=== PATIENT | female | born 1960 | race Caucasian/White ===

== ENCOUNTER → 2017-03-30 | Outpatient (CLI) | payer OTHER ==
[~2017-03-30] MED LIST: ALBU0.5N2 NEB; AMT50 PO; CLON0.5T3 PO; GABA-113 PO; Nebulizer; OXYC20TA50 PO
--- NOTE | 2017-03-30 12:10 | DIAGNOSTIC IMAGING REPORT ---
LUMBAR SPINE 5 VIEWS HISTORY: Pain NA COMPARISON: 02/09/2014 FINDINGS: There is no fracture. No subluxation. Degenerative intervertebral disc change L5-S1 with a small vacuum discs. Mild degenerative change posterior elements. IMPRESSION: Degenerative intervertebral disc changes L5-S1. Minimal degenerative change posterior elements. No acute process. Electronically signed by: Castillo Loyd M.D. 03/30/2017 12:08 PM Dictated Date/Time: 03/30/2017 12:06 PM
--- NOTE | 2017-03-30 12:12 | DIAGNOSTIC IMAGING REPORT ---
SACRUM ONLY CLINICAL HISTORY: LOWER BACK PAIN COMPARISON STUDY: None FINDINGS: Findings of anterior angulation of the coccyx consistent with coccydynia. Moderate degenerative disc change L5-S1. Otherwise negative study. Sacroiliac joints are unremarkable. IMPRESSION: Coccydynia. Mild degenerative disc change L5-S1. Otherwise negative study Electronically signed by: Castillo Loyd M.D. 03/30/2017 12:10 PM Dictated Date/Time: 03/30/2017 12:09 PM
== END | disposition home or self-care (01) ==
LOC: C.RAD 11:07
PROVIDERS: ATTEND Nurse Practitioner Family
DX: M51.26 Other intervertebral disc displacement, lumbar region (principal); M96.1 Postlaminectomy syndrome, not elsewhere classified; M51.36 Other intervertebral disc degeneration, lumbar region; M53.3 Sacrococcygeal disorders, not elsewhere classified

== ENCOUNTER → 2017-08-02 | Outpatient (CLI) | payer OTHER ==
[~2017-08-02] MED LIST changes: +GADAVIST IV PRN
--- NOTE | 2017-08-02 13:27 | DIAGNOSTIC IMAGING REPORT ---
MRI OF THE BRAIN AND IACS WITHOUT AND WITH IV CONTRAST CLINICAL HISTORY: H90.42 Left asymmetrical sensorineural hearing loss COMPARISON STUDY: No previous studies for comparison. TECHNIQUE: MRI of the brain was performed from the vertex to the skull base utilizing various T1 and T2 weighted sequences. Following the IV administration of 7.7 mL of Gadavist contrast, additional enhanced images were obtained. FINDINGS: Sagittal T1, axial diffusion, proton density and T2 weighted axial, coronal FLAIR, and pre and post axial T1-weighted images were acquired. These were supplemented with post gadolinium coronal T1 weighted images. No intra or extra-axial mass lesions are visualized. Axial diffusion-weighted images reveal no evidence of acute or subacute infarction. There is no evidence of ventricular dilatation. Proton density T2-weighted and FLAIR images reveal scattered foci of increased T2 signal within the white matter, likely on a small vessel basis. There are no abnormal flow voids. There is no evidence of pathologic enhancement. The 7th and 8th nerve complexes appear normal bilaterally. No cerebellopontine angle masses are visualized. IMPRESSION: 1. No acute intracranial findings 2. No evidence of acute or subacute infarction 3. No evidence of intracranial mass. The 7th and 8th nerve complexes appear normal bilaterally. No cerebellopontine angle masses are delineated Electronically signed by: Kenji Henry M.D. 08/02/2017 1:26 PM Dictated Date/Time: 08/02/2017 1:24 PM
== END | disposition home or self-care (01) ==
LOC: C.MRI 11:56
DX: H90.42 Sensorineural hearing loss, unilateral, left ear, with unrestricted hearing on the contralateral side (principal)

== ENCOUNTER → 2017-09-21 | Outpatient (CLI) | payer OTHER ==
[~2017-09-21] MED LIST changes: -GADAVIST IV PRN
== END | disposition home or self-care (01) ==
LOC: C.PAPS 09:48
PROVIDERS: ATTEND Obstetrics & Gynecology
DX: D07.2 Carcinoma in situ of vagina (principal)

== ENCOUNTER → 2017-11-28 | Outpatient (CLI) | payer OTHER | END | disposition home or self-care (01) | LOC: C.PATHSPEC 17:34 | PROVIDERS: ATTEND Obstetrics & Gynecology | DX: L98.9 Disorder of the skin and subcutaneous tissue, unspecified (principal) ==

== ENCOUNTER 2022-07-03 10:18 | Inpatient (IN) ==
[2022-07-03] MEDS ORDERED: SODIUM CHLORIDE 0.9% 1000ML 1,000 ML IV ONE (11:01)
--- NOTE | 2022-07-03 11:10 | Emergency Department Note ---
Impression & Plan Hypoxia, Bilateral pneumonia, Transaminitis, AMS (altered mental status) ED Provider Note NAME: ROSE GELLER AGE: 61 SEX: F : 1960 ARRIVES VIA: Walk-In INFORMANT: Patient ED PROVIDER(S): Kevon Freeman DO CHIEF COMPLAINT: shortness of breath HPI: Patient is a 61-year-old female who presents the ER for shortness of breath. This started the past 2 days. She admits to a cough which has significantly worsened today. Did receive methadone prior to arrival but has been confused since waking up this morning per family member at bedside. Denies any belly pain, nausea, vomiting, or diarrhea. No dysuria, urgency, or frequency. She denies any chest pain family member notes that she was having some pain earlier today. ROS: See above HPI for pertinent positives & negatives. A total of 10 systems reviewed and were otherwise negative. PAST MEDICAL HISTORY:See Below PAST SURGICAL HISTORY:See Below FAMILY HISTORY:See Below SOCIAL HISTORY:See Below HOME MEDICATIONS:See Below ALLERGIES:See Below VITALS:See Below PHYSICAL EXAMINATION: GENERAL: Sitting up in bed, alert, appearing, disheveled, on nasal cannula, diaphoretic EYE EXAM: normal conjunctiva. OROPHARYNX: no exudate, no erythema, lips, buccal mucosa, and tongue normal and mucous membranes are moist NECK: supple, no nuchal rigidity, no adenopathy, non-tender LUNGS: Clear to auscultation. Normal chest wall mechanics HEART: no murmurs, S1 normal and S2 normal ABDOMEN: abdomen soft, non-tender, normo-active bowel sounds, no masses, no rebound or guarding. UPPER EXTREMITIES: upper extremities are grossly normal. LOWER EXTREMITIES: No pitting edema. NEURO EXAM: Oriented to person but not place or year, cranial nerves II-XII grossly intact, normal speech, no gross weakness of arms, no gross weakness of legs. MEDICAL DECISION MAKING: Patient is a 61-year-old female who presents the ER with above-stated complaint. Patient has been having cough congestion shortness of breath for the past 2 days. IV was established blood was obtained. Labs show no significant leukocytosis or anemia. D-dimer was elevated. VBG with a pH of 7.34. BMP was unremarkable. LFTs elevated in the 150s. Troponin elevated at 30. Pro-Nabeel was normal. CT head as well as angio of the chest was unremarkable. Given IV fluids as well as IV antibiotics which include Rocephin and azithromycin. Remained on nasal cannula and was admitted to hospital for further work-up. Triage Nursing notes reviewed. Limited review of prior medical records performed Vital Signs: reviewed and remarkable for hypoxic, tachycardic and hypertensive Differential diagnosis: Differential diagnoses includes but is not limited to pneumonia, bronchitis, COPD/Asthma exacerbation, pneumothorax, pulmonary embolism, congestive heart failure, acute coronary syndrome ER treatment provided: See below Diagnostics interpreted by me: ECG: Sinus tachycardia rate of 118 Left axis Right bundle branch block T wave inversions in the septal leads and high lateral leads QTC 476 Cardiac Monitoring: An order was placed for continuous cardiac monitoring. The monitor shows a rate of 101 with sinus rhythm. Laboratory studies: As stated above and show below. Imaging studies: Chest x-ray with bilateral pneumonia. 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 during vocal cord polypectomy Surgical History History of colonoscopy History of esophagogastroduodenoscopy (EGD) History of laparoscopy History of loop electrical excision procedure (LEEP) History of lumbar surgery History of prior ablation treatment (2013) vaginal lesions History of tubal ligation History of vocal cord polypectomy Family History Father Diabetes Myocardial infarction Lung cancer Hypertension Mother Diabetes Cardiac disorder Hypertension Grandfather (Maternal) Diabetes Grandmother (Maternal) Diabetes Unknown Heart disease Sister Myocardial infarction Grandfather (Paternal) Diabetes Grandmother (Paternal) Diabetes Brother Retinoblastoma Other No family history of adverse response to anesthesia Denies family history of Ovarian cancer Prostate cancer Osteoporosis Breast cancer Bleeding disorder Colorectal cancer Social History Smoking Status: Current some day smoker Tobacco Type: Cigarettes Age Started Using Tobacco: 17; Cigarettes Per Day: 12-14; Second Hand Exposure: Yes; Hx Alcohol Use: Yes Hx Substance Use: No Preferred Language: [place] Communication Ability: Effective Visual Impairment: No Limitations Hearing Ability: Normal Beliefs That Will Affect Care: None marital status: Current Living Situation: Alone current occupational status: unemployed and disabled Feels Safe at Home: Yes Childhood Exposure to Second-Hand Smoke: Yes caffeine: Yes Dental Care, Regularly: Yes Physical Activity Frequency: 5-6 Times per Week Seatbelt Use: always Sunscreen Use: Yes Assistive Devices: Denture - Upper and Denture - Lower Allergies Allergies Allergy/AdvReac Type Severity Reaction Status Date / Time varenicline Allergy Severe DIFFICULTY Verified 05/03/22 14:41 BREATHING bupropion AdvReac Intermediate INCREASED Verified 05/03/22 14:41 PANIC DISORDER fluoxetine AdvReac Intermediate INCREASES Verified 05/03/22 14:41 PANIC DISORDER venlafaxine AdvReac Intermediate INCREASES Verified 05/03/22 14:41 PANIC DISORDER Home Meds Home Medications Medication Instructions Recorded Confirmed methadone 10 mg/mL oral concentrate 131 mg PO QAM 08/19/19 05/03/22 aspirin 81 mg tablet,delayed 81 mg PO QAM 07/07/20 05/03/22 release (Adult Low Dose Aspirin) naloxone 4 mg/actuation nasal 1 spray intranasal DIRECTED PRN 04/16/22 spray (Narcan) NEEDED Previous Rx's Medication Instructions Recorded fluticasone furoate 100 1 inh inhalation DAILY #60 ea 06/15/21 mcg-vilanterol 25 mcg/dose inhalation powder (Breo Ellipta) metformin 500 mg tablet 500 mg PO BID #180 tabs 09/22/21 albuterol sulfate 90 mcg/actuation 2 puff inhalation QID PRN 11/07/21 aerosol inhaler shortness of breath or wheezing #6.7 grams ipratropium 0.5 mg-albuterol 3 mg 3 ml inhalation QID PRN wheezing 11/07/21 (2.5 mg base)/3 mL nebulization #90 mL soln gabapentin 800 mg tablet 800 mg PO TID #90 tabs 03/24/22 psyllium husk 3.4 gram/5.4 gram 1 tbsp PO BID PRN constipation 04/06/22 oral powder (Metamucil) #660 grams amitriptyline 150 mg tablet 150 mg PO HS #90 tabs 04/14/22 prednisone 20 mg tablet See Rx Instructions PO .COMPLEX 05/03/22 #30 tabs methocarbamol 750 mg tablet 750 mg PO QID PRN CHRONIC PAIN #60 05/16/22 tabs Results & Data (ED) Vital Signs Vital Signs - 24 hr 07/03/22 10:36 07/03/22 11:02 07/03/22 11:03 Temperature 37.7 C H Temperature Source Temporal Artery Scan Pulse Rate 116 H Pulse Rate [Apical] 119 H Pulse Rhythm [Apical] Regular Respiratory Rate 18 22 Respiratory Effort / Characteristics Short of Breath Short of Breath Blood Pressure 166/85 H Blood Pressure [Left Arm] 156/118 H Blood Pressure Mean 112 Blood Pressure Mean [Left Arm] 130 Pulse Oximetry 89 L 94 Oxygen Delivery Method Room Air Nasal Cannula Nasal Cannula Oxygen Flow Rate Sepsis Recent Fever Within 48 Hours Yes Sepsis New/Unexplained Change in Mental Status No Sepsis Action Taken by Nursing No Action Required 07/03/22 11:03 07/03/22 11:18 07/03/22 13:10 Temperature Temperature Source Pulse Rate Pulse Rate [Apical] 82 Pulse Rhythm [Apical] Regular Respiratory Rate 20 Respiratory Effort / Characteristics Blood Pressure Blood Pressure [Left Arm] Blood Pressure Mean Blood Pressure Mean [Left Arm] Pulse Oximetry 95 92 Oxygen Delivery Method Nasal Cannula Nasal Cannula Nasal Cannula Oxygen Flow Rate 3 3 3 Sepsis Recent Fever Within 48 Hours Sepsis New/Unexplained Change in Mental Status Sepsis Action Taken by Nursing Laboratory Data Result diagrams: 07/03/22 10:55 07/03/22 10:55 Lab Results 07/03/22 07/03/22 07/03/22 Range/Units 10:55 10:55 10:55 WBC 10.36 (4.8-10.8) K/ul RBC 5.11 (3.93-5.22) M/uL Hgb 15.3 (12.0-16.0) g/dl Hct 47.1 H (34.1-44.9) % MCV 92.2 (80.0-100.0) fL MCH 29.9 (25.0-34.0) pg MCHC 32.5 (32.0-36.0) g/dL RDW Std Deviation 46.9 H (36.4-46.3) fL RDW Coeff of Daniel 13.7 (11.5-14.5) % Plt Count 194 (130-400) K/uL MPV 10.2 (9.4-12.3) fL Immature Gran % (Auto) 0.5 % Neut % (Auto) 86.6 % Lymph % (Auto) 5.9 % [place] % (Auto) 6.1 % Eos % (Auto) 0.5 % Baso % (Auto) 0.4 % Neut # (Auto) 8.98 H (1.4-6.5) K/uL Lymph # (Auto) 0.61 L (1.2-3.4) K/uL [place] # (Auto) 0.63 (0.24-0.82) K/uL Eos # (Auto) 0.05 (0-0.50) K/uL Baso # (Auto) 0.04 (0-0.2) K/uL Immature Gran # (Auto) 0.05 H (0.00-0.02) K/uL D-Dimer 4000 H* (0-500) ug/L FEU VBG pH (7.36-7.41) VBG pCO2 (38-50) mmHg VBG pO2 mmHg VBG HCO3 mmol/L VBG O2 Saturation % VBG Base Excess mEq/L Sodium 135 L (136-145) mmol/L Potassium 3.7 (3.5-5.1) mmol/L Chloride 101 (98-107) mmol/L Carbon Dioxide 24 (21-32) mmol/L Anion Gap 10 (3-11) BUN 9 (6-23) mg/dl Creatinine 0.68 (0.6-1.2) mg/dl Est Cr Clr Drug Dosing Not Reportable Est GFR ( Amer) 111.0 ml/min Est GFR (Non-Af Amer) 95.7 ml/min BUN/Creatinine Ratio 13.2 (10-20) Glucose 146 H (70-99(Fasting)) mg/dl Calcium 9.2 (8.5-10.1) mg/dl Total Bilirubin 1.0 (0.2-1.0) mg/dl AST 151 H (13-39) U/L ALT 114 H (7-52) U/L Alkaline Phosphatase 105 H (34-104) U/L Troponin I High Sens 29.1 H (0-14) pg/ml Total Protein 7.1 (6.0-8.3) gm/dl Albumin 3.9 (3.4-5.0) gm/dl Globulin 3.2 (2.5-4.0) gm/dl Albumin/Globulin Ratio 1.2 (0.9-2) Lipase 22 (11-82) U/L Procalcitonin (0-0.5) ng/ml SARS-CoV-2, RNA, NAAT (NEGATIVE) 07/03/22 07/03/22 07/03/22 Range/Units 10:55 11:18 11:29 WBC (4.8-10.8) K/ul RBC (3.93-5.22) M/uL Hgb (12.0-16.0) g/dl Hct (34.1-44.9) % MCV (80.0-100.0) fL MCH (25.0-34.0) pg MCHC (32.0-36.0) g/dL RDW Std Deviation (36.4-46.3) fL RDW Coeff of Daniel (11.5-14.5) % Plt Count (130-400) K/uL MPV (9.4-12.3) fL Immature Gran % (Auto) % Neut % (Auto) % Lymph % (Auto) % [place] % (Auto) % Eos % (Auto) % Baso % (Auto) % Neut # (Auto) (1.4-6.5) K/uL Lymph # (Auto) (1.2-3.4) K/uL [place] # (Auto) (0.24-0.82) K/uL Eos # (Auto) (0-0.50) K/uL Baso # (Auto) (0-0.2) K/uL Immature Gran # (Auto) (0.00-0.02) K/uL D-Dimer (0-500) ug/L FEU VBG pH 7.34 L (7.36-7.41) VBG pCO2 45 (38-50) mmHg VBG pO2 59 mmHg VBG HCO3 24 mmol/L VBG O2 Saturation 92.5 % VBG Base Excess -1.7 mEq/L Sodium (136-145) mmol/L Potassium (3.5-5.1) mmol/L Chloride (98-107) mmol/L Carbon Dioxide (21-32) mmol/L Anion Gap (3-11) BUN (6-23) mg/dl Creatinine (0.6-1.2) mg/dl Est Cr Clr Drug Dosing Est GFR ( Amer) ml/min Est GFR (Non-Af Amer) ml/min BUN/Creatinine Ratio (10-20) Glucose (70-99(Fasting)) mg/dl Calcium (8.5-10.1) mg/dl Total Bilirubin (0.2-1.0) mg/dl AST (13-39) U/L ALT (7-52) U/L Alkaline Phosphatase (34-104) U/L Troponin I High Sens (0-14) pg/ml Total Protein (6.0-8.3) gm/dl Albumin (3.4-5.0) gm/dl Globulin (2.5-4.0) gm/dl Albumin/Globulin Ratio (0.9-2) Lipase (11-82) U/L Procalcitonin 0.48 (0-0.5) ng/ml SARS-CoV-2, RNA, NAAT NEGATIVE (NEGATIVE) Administered Medications Sodium Chloride (Nss 1000ml) 1,000 mls @ 999 mls/hr IV .Q1H1M ONE Last Infusion: 07/03/22 12:22 Dose: 0 mls/hr Documented By: Admin: 07/03/22 11:20 Dose: 999 mls/hr Documented By: BUSTER Sodium Chloride (Nss) 500 mls @ 80 mls/hr IV .Q6H15M MADDY Stop: 07/03/22 20:14 Last Admin: 07/03/22 14:52 Dose: 80 mls/hr Documented By: BUSTER Discontinued Medications Dexamethasone Sodium Phosphate (DexamethasonePf 10 Mg/Ml Vial) 10 mg IV NOW ONE Stop: 07/03/22 12:01 Last Admin: 07/03/22 12:22 Dose: 10 mg Documented By: BUSTER Ceftriaxone Sodium (Rocephin) 2,000 mg in 70 mls @ 140 mls/hr IV NOW STA Stop: 07/03/22 12:29 Last Infusion: 07/03/22 12:33 Dose: 0 mls/hr Documented By: Admin: 07/03/22 12:22 Dose: 140 mls/hr Documented By: KV Azithromycin 500 mg/ Dextrose 255 mls @ 125 mls/hr IV ONE ONE Stop: 07/03/22 14:02 Last Infusion: 07/03/22 14:52 Dose: 0 mls/hr Documented By: Admin: 07/03/22 12:22 Dose: 125 mls/hr Documented By: KV Ioversol (Optiray 300 500ml) 120 ml IV ONCE ONE Stop: 07/03/22 12:21 Last Admin: 07/03/22 12:11 Dose: 120 ml Documented By: BRM Imaging Data Radiologist's Impression: Chest X-Ray 07/03/22 11:02 XR chest 1V portable HISTORY: Atypical Chest Pain COMPARISON: Chest 05/20/2021. FINDINGS: No pneumothorax. No pleural effusions. There are low lung volumes. The heart is normal in size. There is patchy airspace opacities within the right mid to lower lung zone and left lung base. This is new from the prior study. IMPRESSION: Bilateral airspace opacities, right greater than left, which is new from the prior study. This likely represents a multifocal pneumonia and could be secondary to a viral process. 1-2 month chest x-ray follow-up recommended to ensure resolution. ACT 112: Negative or not required by law. Electronically signed by: Thor Harden M.D. 07/03/2022 11:29 AM Chest CTA 07/03/22 11:50 CT angio chest PE protocol CLINICAL HISTORY: PE TECHNIQUE: Multidetector row helical CT of the chest was performed with angiographic protocol. Coronal and sagittal reformations were obtained. Coronal and sagittal MIPS were obtained from the axial data set and were submitted for review. Automated dose lowering techniques and/or adjustment according to patient size were utilized for this exam. CT DOSE: 2074.35 mGy.cm Comparison: Comparison is made to chest radiograph 06/13/2022 FINDINGS: Lungs and pleura: Consolidation is in the right greater than left lower lung. Paraseptal emphysematous changes are seen most prominent in the apices. Heart and pericardium: Heart size is normal. No pericardial effusion. Vessels: No evidence of pulmonary embolism. Moderate atherosclerotic disease is seen. Mediastinum and hubert: There is a 12 mm subcarinal node. Chest wall and lower neck: Unremarkable. Abdomen: Unremarkable. Bones: Unremarkable. IMPRESSION: 1. No evidence of pulmonary embolism. 2. Bilateral consolidation compatible with pneumonia. Subcarinal lymph node may be reactive. ACT 112: Negative or not required by law. Electronically signed by: Hamilton Saldivar M.D. 07/03/2022 12:[address] 07/03/22 12:[address] DOSE: HISTORY: Altered mental status. TECHNIQUE: Multiaxial CT images of the head were performed without the use of intravenous contrast. Automated exposure control was utilized for this study. A dose lowering technique was utilized adhering to the principles of ALARA. Comparison: Head CT 05/20/2021. Findings: The paranasal sinuses and mastoid air cells are clear. The calvarium and skull base are intact. The ventricles and sulci are within normal limits. There is no mass, hematoma, midline shift, or acute infarct. Impression: No acute intracranial abnormality. ACT 112: Negative or not required by law. Electronically signed by: Thor Harden M.D. 07/03/2022 12:25 PM Discharge Plan Visit Data Chief Complaint: Shortness of Breath/Dyspnea Stated Complaint: HARD TO BREATHE ED Provider: Kevon Freeman Discharge Problem: Hypoxia, Bilateral pneumonia, Transaminitis, AMS (altered mental status) Patient Disposition: Admitted As Inpatient Discharge Instructions Interventions: ED Discharge Assessment Last Done: 07/03/22 16:05
[2022-07-03 11:28] LABS: Basophils # (auto) 0.04 K/uL (0-0.2); Basophils % (auto) 0.4 %; Eosinophils # (auto) 0.05 K/uL (0-0.50); Eosinophils % (auto) 0.5 %; Hematocrit (blood only) 47.1 % (34.1-44.9); Hemoglobin 15.3 g/dl (12.0-16.0); Immature Granulocytes # (auto) 0.05 K/uL (0.00-0.02); Immature Granulocytes % (auto) 0.5 %; Lymphocytes # (auto) 0.61 K/uL (1.2-3.4); Lymphocytes % (auto) 5.9 %; Mean Corpuscular Hemoglobin 29.9 pg (25.0-34.0); Mean Corpuscular Hgb Conc 32.5 g/dL (32.0-36.0); Mean Corpuscular Volume 92.2 fL (80.0-100.0); Mean Platelet Volume 10.2 fL (9.4-12.3); Monocytes # (auto) 0.63 K/uL (0.24-0.82); Monocytes % (auto) 6.1 %; Neutrophils # (auto) 8.98 K/uL (1.4-6.5); Neutrophils % (auto) 86.6 %; Platelet Count 194 K/uL (130-400); RDW Coefficient of Variation 13.7 % (11.5-14.5); RDW Standard Deviation 46.9 fL (36.4-46.3); Red Blood Count 5.11 M/uL (3.93-5.22); White Blood Count 10.36 K/ul (4.8-10.8)
--- NOTE | 2022-07-03 11:30 | XRay Report ---
XR chest 1V portable HISTORY: Atypical Chest Pain COMPARISON: Chest 05/20/2021. FINDINGS: No pneumothorax. No pleural effusions. There are low lung volumes. The heart is normal in s ize. There is patchy airspace opacities within the right mid to lower lung zone and left lung base. T his is new from the prior study. IMPRESSION: Bilateral airspace opacities, right greater than left, which is new from the prior study. This likely represents a multifocal pneumonia and could be secondary to a viral process. 1-2 month chest x-ray f ollow-up recommended to ensure resolution. ACT 112: Negative or not required by law. Electronically signed by: Thor Harden M.D. 07/03/2022 11:29 AM
[2022-07-03 11:41] LABS: Alanine Aminotransferase 114 U/L (7-52); Albumin Globulin Ratio 1.2 (0.9-2); Albumin Level 3.9 gm/dl (3.4-5.0); Alkaline Phosphatase 105 U/L (34-104); Anion Gap 10 (3-11); Aspartate Aminotransferase 151 U/L (13-39); BUN Creatinine Ratio 13.2 (10-20); Blood Urea Nitrogen 9 mg/dl (6-23); Calcium 9.2 mg/dl (8.5-10.1); Carbon Dioxide 24 mmol/L (21-32); Chloride 101 mmol/L (98-107); Est GFR (Non-African American) 95.7 ml/min; Globulin 3.2 gm/dl (2.5-4.0); Glucose 146 mg/dl (70-99(Fasting)); Lipase 22 U/L (11-82); Potassium 3.7 mmol/L (3.5-5.1); Sodium 135 mmol/L (136-145); Total Protein 7.1 gm/dl (6.0-8.3)
[2022-07-03 11:43] LABS: Base Excess VBG -1.7 mEq/L; HCO3 VBG 24 mmol/L; Oxygen Saturation VBG 92.5 %; PCO2 VBG 45 mmHg (38-50); PO2 VBG 59 mmHg; pH VBG 7.34 (7.36-7.41)
[2022-07-03 11:46] LABS: Troponin I High Sensitivity 29.1 pg/ml (0-14)
[2022-07-03 11:49] LABS: D Dimer 4000 ug/L FEU (0-500)
[2022-07-03] MEDS ORDERED: dexAMETHasone**PF** 10 MG/ML VIAL IV ONE (12:00)
[2022-07-03] MEDS ORDERED: AZITHROMYCIN 500 MG in DEXTROSE 5% 250 ML IV ONE (12:00)
[2022-07-03] MEDS ORDERED: cefTRIAXone SODIUM 2,000 MG/70 ML BAG IV STA (12:00)
[2022-07-03] MEDS ORDERED: OPTIRAY 300 500mL IV ONE (12:20)
--- NOTE | 2022-07-03 12:27 | CT Scan Report ---
HEAD CT NONCONTRAST CT DOSE: HISTORY: Altered mental status. TECHNIQUE: Multiaxial CT images of the head were performed without the use of intravenous contrast. A utomated exposure control was utilized for this study. A dose lowering technique was utilized adheri ng to the principles of ALARA. Comparison: Head CT 05/20/2021. Findings: The paranasal sinuses and mastoid air cells are clear. The calvarium and skull base are int act. The ventricles and sulci are within normal limits. There is no mass, hematoma, midline shift, or acute infarct. Impression: No acute intracranial abnormality. ACT 112: Negative or not required by law. Electronically signed by: Thor Harden M.D. 07/03/2022 12:25 PM
--- NOTE | 2022-07-03 12:27 | CT Scan Report ---
CT angio chest PE protocol CLINICAL HISTORY: PE TECHNIQUE: Multidetector row helical CT of the chest was performed with angiographic protocol. Hector l and sagittal reformations were obtained. Coronal and sagittal MIPS were obtained from the axial douglas a set and were submitted for review. Automated dose lowering techniques and/or adjustment according to patient size were utilized for this exam. CT DOSE: 2074.35 mGy.cm Comparison: Comparison is made to chest radiograph 06/13/2022 FINDINGS: Lungs and pleura: Consolidation is in the right greater than left lower lung. Paraseptal emphysematou s changes are seen most prominent in the apices. Heart and pericardium: Heart size is normal. No pericardial effusion. Vessels: No evidence of pulmonary embolism. Moderate atherosclerotic disease is seen. Mediastinum and hubert: There is a 12 mm subcarinal node. Chest wall and lower neck: Unremarkable. Abdomen: Unremarkable. Bones: Unremarkable. IMPRESSION: 1. No evidence of pulmonary embolism. 2. Bilateral consolidation compatible with pneumonia. Subcarinal lymph node may be reactive. ACT 112: Negative or not required by law. Electronically signed by: Hamilton Saldivar M.D. 07/03/2022 12:25 PM
--- NOTE | 2022-07-03 12:48 | Electrocardiogram Report ---
Test Reason : Blood Pressure : / mmHG Vent. Rate : 118 BPM Atrial Rate : 118 BPM P-R Int : 154 ms QRS Dur : 108 ms QT Int : 340 ms P-R-T Axes : 087 -69 086 degrees QTc Int : 476 ms Poor data quality, interpretation may be adversely affected Sinus tachycardia with occasional Premature ventricular complexes Right bundle branch block Left anterior fascicular block Left ventricular hypertrophy with repolarization abnormality Abnormal ECG When compared with ECG of 20-MAY-2021 18:21, Premature ventricular complexes are now Present Vent. rate has increased BY 46 BPM Confirmed by Francis Frederick ([id number]) on 07/03/2022 12:48:06 PM Referred By: REFERRED SELF Confirmed By:Francis Frederick
--- NOTE | 2022-07-03 13:14 | History & Physical Report ---
Date of Service July 03, 2022 Assessment & Plan (1) Acute respiratory failure with hypoxia: Plan: Patient is a 61-year-old female with a past medical history of hypertension, neuropathy, marijuana use, anxiety/depression/panic, DM, hypertriglyceridemia, hemochromatosis heterozygote, asthma/COPD overlap presents with acute shortness of breath and new oxygen requirement and he was found to have bilateral pneumonia. In discussion patient does have a history of aspiration following polyp removal. Is a daily heavy smoker with additional recreational marijuana use from uncontrolled source. Does use methadone from [facility] for chronic pain/dependence. Acute hypoxic respiratory failure 2/2 CAP - ?aspiration, patient with history of polyp removal and reports multiple aspiration events in the past Speech therapy consulted, n.p.o. pending eval D-dimer elevated 4000 CXR: Bilateral basilar airspace opacities right greater than left CTA: No PE. Bilateral consolidation consistent with pneumonia, possible subcarinal reactive lymph nodes CT head: No acute findings COVID negative No leukocytosis Tachycardic to 120, hypertensive, temperature 37.7 Procalcitonin pending VB.3 4/45/59/24. Sodium 135, potassium normal, glucose 146, calcium normal Bilirubin normal, AST/ALT/alk phos elevated to 151/114/105 from baseline elevations Received Rocephin in ER. Given concern for aspiration will expand to Unasyn for anaerobic coverage, and will continue azithromycin for atypical with? COPD exacerbation. Daily heavy tobacco use. Patch ordered Hereditary hemochromatosis heterozygote Follows with [facility] C282Y heterozygous, secondary other further paresis in the setting of tobacco use Phlebotomy held at February/2022 follow-up due to diminished ferritin levels. LFTs have up trended. Liver ultrasound pending. Hepatitis panel ordered. Repeat iron labs pending Given increased risk AFP ordered, pending TSH pending Troponin 29.1, unclear if demand from proximal respiratory failure above or could be 2/2 deposition with HH. Trended. No acute ST segment changes Chronic pain Following with orthospine, has received Solu-Medrol treatment in the past and injections with pain management which have not helped Continue amitriptyline 150 mg p.o. nightly, methocarbamol, methadone DM On metformin 500 mg p.o. twice daily monotherapy Hold home metformin Glucose checks AC/at bedtime BSG goal [id number] Basal bolus/SSI: 10 units Lantus twice daily dose reduced while n.p.o., CF 40, ratio 13 A1c pending Hypertension Somewhat limited as patient uncomfortable with cough and flexes/lips arms during read Metoprolol every 6 hours as needed for breakthrough, hydralazine second line Asthma COPD overlap, AoC COPD No PFTs available for review History of asthma, patient is a heavy marijuana and cigarette smoker Wheezes appreciated on admission - Recieved dex 10 on admit. Additional deferred as wheezing is improving and +bacterial PNA - Continue inhalers, duonebs prn, budesonide inh BID 2nd line PRN - Continue azithro x5 day scourse. QtC <480 - incentive juan/flutter Daily prophylaxis: Heparin CODE STATUS: Full code, discussed with family Diet: N.p.o. pending speech eval then DM2/heart healthy Disposition: PCU for close monitoring while on cardiac eval and for respiratory failure (2) Altered mental state: (3) Chronic obstructive asthma: (4) Chronic pain: (5) Diabetes mellitus: (6) Hemochromatosis carrier: (7) Hypertriglyceridemia: (8) Marijuana smoker: (9) Panic disorder: (10) Current every day smoker: (11) GERD (gastroesophageal reflux disease): History of Present Illness Primary Care Provider: Eunice Velasquez MD Patient is a 61-year-old female with a past medical history of hypertension, neuropathy, marijuana use, anxiety/depression/panic, DM, hypertriglyceridemia, hemochromatosis heterozygote, asthma/COPD overlap presents with acute shortness of breath and new oxygen requirement and he was found to have bilateral pneumonia. No sob now, was previously No chest pain She reprots when she woke up yesterday morning she felt a little out of it and short of breath. Per her daughter for 6 months off and on she has had worsening spells of fatigue. She smokes marijuana intermittently and thought it was related but more recently has been worse and was noted to be hypoxic on admit. 10-15 good days then 3-4 really bad days. COnfusion is waxing and waning but hits very hard. This morning when she woke up she was so short of breath she couldnt talk and grabbed nebulizer but did feel some pain in the chest while using the nebulizer and was brought to [facility] for evaluation. Has had pain in her mid-back. Took Medications Uses recreational marijuana. Has chronic pain. Did smoke yesterday Heavy smoker. Rolls own cigarettes, smokes equivalent of 2 packs per day plus rolled ciragettes. Lungs hurting bad and has slowed down. Methadone 131mg from [facility]. +fevers, chills, +night sweats +weakness Medical History: Reviewed Medications: Reviewed. Took meds today. takes in the morning, Surgical History: Reviewed Allergies: Reviewed Social History: Tobacco as above. No alcohol. No other rec drug use. Code Status: Surrogate DM would be daughter Linnea Mata [phone]. Full Code. Allergies Allergy/AdvReac Type Severity Reaction Status Date / Time varenicline Allergy Severe DIFFICULTY Verified 05/03/22 14:41 BREATHING bupropion AdvReac Intermediate INCREASED Verified 05/03/22 14:41 PANIC DISORDER fluoxetine AdvReac Intermediate INCREASES Verified 05/03/22 14:41 PANIC DISORDER venlafaxine AdvReac Intermediate INCREASES Verified 05/03/22 14:41 PANIC DISORDER Home Medications Medication Instructions Recorded Confirmed Type methadone 10 mg/mL oral concentrate 131 mg PO QAM 08/19/19 05/03/22 History aspirin 81 mg tablet,delayed 81 mg PO QAM 07/07/20 05/03/22 History release (Adult Low Dose Aspirin) fluticasone furoate 100 1 inh inhalation DAILY #60 ea 06/15/21 05/03/22 Rx mcg-vilanterol 25 mcg/dose inhalation powder (Breo Ellipta) metformin 500 mg tablet 500 mg PO BID #180 tabs 09/22/21 05/03/22 Rx albuterol sulfate 90 mcg/actuation 2 puff inhalation QID PRN 11/07/21 05/03/22 Rx aerosol inhaler shortness of breath or wheezing #6.7 grams ipratropium 0.5 mg-albuterol 3 mg 3 ml inhalation QID PRN wheezing 11/07/21 05/03/22 Rx (2.5 mg base)/3 mL nebulization #90 mL soln gabapentin 800 mg tablet 800 mg PO TID #90 tabs 03/24/22 05/03/22 Rx psyllium husk 3.4 gram/5.4 gram 1 tbsp PO BID PRN constipation 04/06/22 05/03/22 Rx oral powder (Metamucil) #660 grams amitriptyline 150 mg tablet 150 mg PO HS #90 tabs 04/14/22 05/03/22 Rx naloxone 4 mg/actuation nasal 1 spray intranasal DIRECTED PRN 04/16/22 05/03/22 History spray (Narcan) NEEDED prednisone 20 mg tablet See Rx Instructions PO .COMPLEX 05/03/22 05/03/22 Rx #30 tabs methocarbamol 750 mg tablet 750 mg PO QID PRN CHRONIC PAIN #60 05/16/22 Rx tabs Past Med/Surg History Medical History (Updated 07/03/22 @ 13:57 by Rafael Rico MD) Chronic lumbar pain Cough currently w/ productive cough x 3-5 days; yellow sputum Current every day smoker DDD (degenerative disc disease) Eardrum trauma hx GERD (gastroesophageal reflux disease) Hemochromatosis History of colon polyps Orthostatic hypotension Osteoarthritis Panic disorder 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 cord reports injury to left during vocal cord polypectomy Surgical History History of colonoscopy History of esophagogastroduodenoscopy (EGD) History of laparoscopy History of loop electrical excision procedure (LEEP) History of lumbar surgery History of prior ablation treatment (2013) vaginal lesions History of tubal ligation History of vocal cord polypectomy Family History Father Diabetes Myocardial infarction Lung cancer Hypertension Mother Diabetes Cardiac disorder Hypertension Grandfather (Maternal) Diabetes Grandmother (Maternal) Diabetes Unknown Heart disease Sister Myocardial infarction Grandfather (Paternal) Diabetes Grandmother (Paternal) Diabetes Brother Retinoblastoma Other No family history of adverse response to anesthesia Denies family history of Ovarian cancer Prostate cancer Osteoporosis Breast cancer Bleeding disorder Colorectal cancer Social History Smoking Status: Current some day smoker Tobacco Type: Cigarettes Age Started Using Tobacco: 17; Cigarettes Per Day: 12-14; Second Hand Exposure: Yes; Hx Alcohol Use: Yes Hx Substance Use: No Preferred Language: Citizen Of [place] Communication Ability: Effective Visual Impairment: No Limitations Hearing Ability: Normal Beliefs That Will Affect Care: None marital status: Current Living Situation: Alone current occupational status: unemployed and disabled Feels Safe at Home: Yes Childhood Exposure to Second-Hand Smoke: Yes caffeine: Yes Dental Care, Regularly: Yes Physical Activity Frequency: 5-6 Times per Week Seatbelt Use: always Sunscreen Use: Yes Assistive Devices: Denture - Upper and Denture - Lower Review of Systems Review of Systems: All systems reviewed & are unremarkable except as noted in HPI & below Physical Exam Physical Exam: General: Somnolent, awakens easily and answers questions. No acute distress. HEENT: Atraumatic, normocephalic. Vision and hearing grossly intact Pulm: Bibasilar diffuse crackles, expiratory wheezes in bilateral upper [place]. On nasal cannula. No respiratory distress. Cardiac: RRR, -mrg. Radial pulses intact and symmetrical. Abdominal: Softly distended, nontender. Extremities: Warm, dry. 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 Sensation soft touch intact in hands and feet Results & Data Results & Data ([facility]) Vital Signs (Past 12 Hours) Vital Signs Temp Pulse Pulse Resp BP BP Pulse Ox 07/03/22 13:10 82 20 92 07/03/22 11:18 95 07/03/22 11:03 07/03/22 11:03 07/03/22 11:02 119 H 22 156/118 H 94 07/03/22 10:36 37.7 C H 116 H 18 166/85 H 89 L O2 Del Method O2 Flow Rate 07/03/22 13:10 Nasal Cannula 3 07/03/22 11:18 Nasal Cannula 3 07/03/22 11:03 Nasal Cannula 3 07/03/22 11:03 Nasal Cannula 07/03/22 11:02 Nasal Cannula 07/03/22 10:36 Room Air PG Care Time/CCT Total # of Minutes Spent Total Time Spent with Patient: Total time spent is greater than 50% in coordination of care (as documented) at patient's floor/unit and/or counseling patient: Coding Level of Care Code 64795 Initial Inpt Care Lvl 3 Diagnoses Acute respiratory failure with hypoxia J96.01 Altered mental state R41.82 Chronic obstructive asthma J44.9 Chronic pain G89.29 Chronic pain type: other chronic pain Diabetes mellitus E11.9 Hemochromatosis carrier Z14.8 Hypertriglyceridemia E78.1 Marijuana smoker F12.90 Panic disorder F41.0 Current every day smoker F17.200 GERD (gastroesophageal reflux disease) K21.9 (1) Chronic pain Chronic pain type: other chronic pain Qualified Code(s): G89.29 - Other chronic pain
[2022-07-03] MEDS ORDERED: METOPROLOL TARTRATE 1 MG/ML VIAL IV PRN (13:59)
[2022-07-03] MEDS ORDERED: hydrALAZINE HCL 20 MG/ML VIAL IV PRN (13:59)
[2022-07-03] MEDS ORDERED: SODIUM CHLORIDE 0.9% 500 ML IV SCH (14:00)
[2022-07-03] MEDS ORDERED: POLYETHYLENE (MIRALAX) 17 GM PACK PO PRN (15:38)
[2022-07-03] MEDS ORDERED: ACETAMINOPHEN 325 MG TAB PO PRN (15:38)
[2022-07-03] MEDS ORDERED: GLUCAGON FOR INJ 1 MG VIAL SQ PRN (15:38)
[2022-07-03] MEDS ORDERED: DEXTROSE 50% 50 ML SYRINGE IV PRN (15:38)
[2022-07-03] MEDS ORDERED: GLUCOSE 10 TAB/TUBE PO PRN (15:38)
[2022-07-03] MEDS ORDERED: CARBOHYDRATES FOR HYPOGLYCEMIA PO PRN (15:38)
[2022-07-03] MEDS ORDERED: ALBUT/IPRATROP 3MG/0.5MG NEB 3 ML VIAL NEB PRN (15:38)
[2022-07-03] MEDS ORDERED: GLUCOSE 40% GEL 15 GM TUBE PO PRN (15:38)
[2022-07-03] MEDS ORDERED: PHARMACY GLYCEMIC MGMT CONSULT PRN (15:38)
[2022-07-03] MEDS ORDERED: BUDESONIDE 0.25 MG/2 ML VIAL (PULMICORT) NEB PRN (15:38)
[2022-07-03 16:16] LABS: Base Excess VBG 0.8 mEq/L; HCO3 VBG 27 mmol/L; Oxygen Saturation VBG 62.2 %; PCO2 VBG 49 mmHg (38-50); PO2 VBG 33 mmHg; pH VBG 7.35 (7.36-7.41)
[2022-07-03 16:36] LABS: INR 1.2 (0.9-1.1); Partial Thromboplastin Ratio 1.1; Prothrombin Time 12.5 Seconds (9.0-12.0)
[2022-07-03] MEDS: INSULIN ASPART PER UNIT SC SCH ×2 (17:46→20:44)
[2022-07-03 18:08] LABS: Iron 50 mcg/dl (35-150); Total Iron Binding Cap Calc 444 mcg/dl (250-450); Transferrin (FE) Percent Satur 11 % (15-50); Unsaturated Iron Binding Cap 394 mcg/dl (155-355)
[2022-07-03] MEDS: AMPICILLIN/SULBACTAM SOD 3,000 MG in 0.9 % SODIUM CHLORIDE 100 ML IV SCH ×2 (18:31→22:22)
[2022-07-03] MEDS: NICOTINE 21 MG/24 HR TDSY TD SCH (18:32)
[2022-07-03] MEDS: HEPARIN SOD 5,000 UNIT/0.5 ML VIAL SQ SCH ×2 (18:33→22:24)
[2022-07-03] MEDS: AMITRIPTYLINE HCL 50 MG TAB PO SCH (20:32)
[2022-07-03] MEDS ORDERED: LANTUS PER UNIT CHARGE SQ SCH (21:00)
[2022-07-03 21:45] LABS: Base Excess VBG 2.8 mEq/L; HCO3 VBG 27 mmol/L; Oxygen Saturation VBG 90.9 %; PCO2 VBG 40 mmHg (38-50); PO2 VBG 53 mmHg; pH VBG 7.44 (7.36-7.41)
[2022-07-04] MEDS: INSULIN ASPART PER UNIT SC SCH ×6 (00:09→20:45)
[2022-07-04] MEDS: AMPICILLIN/SULBACTAM SOD 3,000 MG in 0.9 % SODIUM CHLORIDE 100 ML IV SCH ×4 (03:57→20:54)
[2022-07-04] MEDS: HEPARIN SOD 5,000 UNIT/0.5 ML VIAL SQ SCH ×3 (04:38→20:54)
[2022-07-04 07:29] LABS: Basophils # (auto) 0.04 K/uL (0-0.2); Basophils % (auto) 0.3 %; Eosinophils # (auto) 0.03 K/uL (0-0.50); Eosinophils % (auto) 0.2 %; Hematocrit (blood only) 42.9 % (34.1-44.9); Hemoglobin 13.9 g/dl (12.0-16.0); Immature Granulocytes # (auto) 0.08 K/uL (0.00-0.02); Immature Granulocytes % (auto) 0.6 %; Lymphocytes # (auto) 1.68 K/uL (1.2-3.4); Mean Corpuscular Hemoglobin 29.6 pg (25.0-34.0); Mean Corpuscular Hgb Conc 32.4 g/dL (32.0-36.0); Mean Corpuscular Volume 91.5 fL (80.0-100.0); Mean Platelet Volume 10.9 fL (9.4-12.3); Monocytes # (auto) 1.05 K/uL (0.24-0.82); Monocytes % (auto) 7.5 %; Neutrophils # (auto) 11.14 K/uL (1.4-6.5); Neutrophils % (auto) 79.4 %; Platelet Count 185 K/uL (130-400); RDW Coefficient of Variation 13.9 % (11.5-14.5); RDW Standard Deviation 46.6 fL (36.4-46.3); Red Blood Count 4.69 M/uL (3.93-5.22); White Blood Count 14.02 K/ul (4.8-10.8)
[2022-07-04 07:47] LABS: Albumin Globulin Ratio 1.3 (0.9-2); Albumin Level 3.7 gm/dl (3.4-5.0); BUN Creatinine Ratio 21.6 (10-20); Bilirubin,Total 1.1 mg/dl (0.2-1.0); Calcium 9.3 mg/dl (8.5-10.1); Creatinine Clr Calc Pharmacy 155.8 ml/min; Est GFR (Non-African American) 105.3 ml/min; Globulin 2.8 gm/dl (2.5-4.0); Potassium 3.9 mmol/L (3.5-5.1); Total Protein 6.5 gm/dl (6.0-8.3)
[2022-07-04 08:04] LABS: Estimated Average Glucose 134 mg/dl; Hemoglobin A1C 6.3 % (4.5-5.6)
[2022-07-04] MEDS ORDERED: PATIENT'S OWN CONTROLLED MED 2 PO SCH (09:00)
[2022-07-04] MEDS ORDERED: METHADONE ORAL SOLN 2 MG/ML PO SCH (09:00)
[2022-07-04] MEDS: ASPIRIN 81 MG ECTAB PO SCH (09:23)
[2022-07-04] MEDS: NICOTINE 21 MG/24 HR TDSY TD SCH (09:23)
[2022-07-04] MEDS: FLUTICASONE/VILANTEROL 100/25MCG 14 PUFFS/INHALER INH SCH (09:23)
[2022-07-04] MEDS: METHADONE ORAL SOLN 2 MG/ML PO SCH (09:26)
[2022-07-04] MEDS: PATIENT'S OWN CONTROLLED MED 2 PO SCH (09:26)
--- NOTE | 2022-07-04 09:53 | Ultrasound Report ---
ULTRASOUND RIGHT UPPER QUADRANT ABDOMEN CLINICAL HISTORY: Elevated hepatic transaminases. COMPARISON STUDY: Abdominal CT dated 07/17/2019. TECHNIQUE: Real-time, grayscale, and color flow sonography of the right upper quadrant of the abdomen was performed. Images are reviewed in the transverse and longitudinal planes. FINDINGS: Liver: The liver is enlarged and demonstrates heterogeneously increased echotexture indicating steato sis. Note that this degrades acoustic penetration of the liver. Fatty sparing is seen adjacent to gal lbladder fossa. There is mild central intrahepatic biliary ductal dilatation. The main portal vein is patent. Gallbladder: The gallbladder is distended. No shadowing gallstones are identified. There is no gallbl adder wall thickening or pericholecystic fluid. A sonographic Esparza's sign is reportedly absent. The common bile duct is dilated, measuring up to 1.0 cm in diameter. Pancreas: Visualized portions of the pancreatic head and body are normal in appearance. The splenic v ein is patent. Right kidney: Survey images of the right kidney demonstrate normal size and echotexture. There is no hydronephrosis. Ascites: None. IMPRESSION: 1. Hepatomegaly and severe hepatic steatosis. 2. The gallbladder is distended with no shadowing gallstones identified. There is no sonographic evid ence of acute cholecystitis. 3. There is nonspecific intra- and extrahepatic biliary ductal dilatation. Correlate with clinical fi ndings and serum bilirubin levels. ACT 112: Negative or not required by law. Electronically signed by: Humberto Allison M.D. 07/04/2022 9:51 AM
--- NOTE | 2022-07-04 11:59 | Fluoroscopy Report ---
FL video swallow CLINICAL HISTORY: Assess for aspiration TECHNIQUE: Video fluoroscopy of the pharyngeal region was performed as barium mixtures of varying con sistencies were administered to the patient by the speech pathologist. A formal esophagram was not pe rformed. COMPARISON: Prior CTA chest 07/03/2022 FINDINGS: Total fluoroscopy time: 2.3 minutes. Mild dysmotility is seen. There is penetration without aspiration with thin barium. Pooling of barium was noted in the bilateral piriform sinuses and valleculae. IMPRESSION: Penetration without evidence of aspiration. Please see the speech pathology report for further details. ACT 112: Negative or not required by law. Electronically signed by: Hamilton Saldivar M.D. 07/04/2022 11:58 AM
[2022-07-04] MEDS ORDERED: AZITHROMYCIN 250 MG in DEXTROSE 5% 250 ML IV SCH (12:00)
--- NOTE | 2022-07-04 14:37 | Hospitalist Progress Note ---
Date of Service July 04, 2022 Assessment & Plan (1) Acute respiratory failure with hypoxia: Plan: Patient is a 61-year-old female with a past medical history of hypertension, neuropathy, marijuana use, anxiety/depression/panic, DM, hypertriglyceridemia, hemochromatosis heterozygote, asthma/COPD overlap presents with acute shortness of breath and new oxygen requirement and he was found to have bilateral pneumonia. In discussion, patient does have a history of aspiration following polyp removal. Is a daily heavy smoker with additional recreational marijuana use from uncontrolled source. Does use [facility]adone from [facility] for chronic pain/dependence. Acute hypoxic respiratory failure 2/2 CAP - ?aspiration, patient with history of polyp removal and reports multiple aspiration events in the past CTA: No PE. Bilateral consolidation consistent with pneumonia, possible subcarinal reactive lymph nodes Continue Unasyn; plan to switch to Augmentin on discharge to finish course. - Continue azithromycin for atypical with ? COPD exacerbation. Daily heavy tobacco use. Patch ordered. Hereditary hemochromatosis heterozygote Follows with [facility] C282Y heterozygous, secondary other further paresis in the setting of tobacco use Phlebotomy held at February/2022 follow-up due to diminished ferritin levels. LFTs have up trended. Liver ultrasound showed dilated biliary ductal system. Hepatitis panel ordered. Repeat iron labs pending. Given increased risk AFP ordered, pending TSH pending in AM. Chronic pain Following with orthospine, has received Solu-Medrol treatment in the past and injections with pain management which have not helped Continue amitriptyline 150 mg p.o. nightly, methocarbamol, methadone DM A1c was 6.3% this admission. On metformin 500 mg p.o. twice daily monotherapy Hold home metformin Glucose checks AC/at bedtime BSG goal [id number] Basal bolus/SSI: 10 units Lantus twice daily dose reduced while n.p.o., CF 40, ratio 13 Hypertension Somewhat limited as patient uncomfortable with cough and flexes/lips arms during read Metoprolol every 6 hours as needed for breakthrough, hydralazine second line Asthma COPD overlap, AoC COPD No PFTs available for review History of asthma, patient is a heavy marijuana and cigarette smoker Wheezes appreciated on admission; none today. - Received dex 10 on admit. Additional deferred as wheezing is improving and +bacterial PNA - Continue inhalers, duonebs prn, budesonide inh BID 2nd line PRN - Continue azithro x5 day scourse. QtC <480 - incentive juan/flutter Daily prophylaxis: Heparin (2) Altered mental state: (3) Chronic obstructive asthma: (4) Chronic pain: (5) Diabetes mellitus: (6) Hemochromatosis carrier: (7) Hypertriglyceridemia: (8) Marijuana smoker: (9) Panic disorder: (10) Current every day smoker: (11) GERD (gastroesophageal reflux disease): Admission and Anticipated Discharge Date Admission Date: July 03, 2022 Subjective Doing fairly well today. Improved shortness of breath, less cough. More energy. Reports no fevers/chills, chest pain, shortness of breath, abdominal pain, nausea, or vomiting. Physical Exam Constitutional: WD/WN, vitals as above Eyes: EOM intact bilaterally; no conjunctival abnormality ENMT: external ear and nose normal, oropharynx normal Neck: trachea midline, no thyromegaly normal visual inspection Respiratory: normal respiratory effort, lungs clear to auscultation no respiratory distress Cardiovascular: RRR, no murmur, no edema Gastrointestinal (Abdomen): Inspection/Auscultation: abdomen normal to inspection; abdomen not distended Musculoskeletal: no cyanosis or clubbing, extremities motor strength 5/5 Skin: no rashes, warm and dry Neurologic: moves all extremities and awake Speech / Cognition: + abnormal speech (Somewhat hoarse voice.) Psychiatric: Orientation: alert, oriented to person and cooperative Results & Data Results & Data ([facility]) Vital Signs (Past 12 Hours) Vital Signs Temp Pulse Resp BP Pulse Ox O2 Del Method O2 Flow Rate 07/04/22 11:31 37.3 C 87 18 147/74 H 95 Nasal Cannula 3 07/04/22 08:00 Nasal Cannula 3 07/04/22 07:26 36.4 C L 85 20 157/89 H 97 Nasal Cannula 6 07/04/22 03:57 36.4 C L 81 166/91 H 94 Room Air PG Care Time/CCT Total # of Minutes Spent Total Time Spent with Patient: Total time spent is greater than 50% in coordination of care (as documented) at patient's floor/unit and/or counseling patient: Coding Level of Care Code 91232 Subseq Hosp Care Lvl 2 Diagnoses Acute respiratory failure with hypoxia J96.01 Altered mental state R41.82 Chronic obstructive asthma J44.9 Chronic pain G89.29 Chronic pain type: other chronic pain Diabetes mellitus E11.9 Hemochromatosis carrier Z14.8 Hypertriglyceridemia E78.1 Marijuana smoker F12.90 Panic disorder F41.0 Current every day smoker F17.200 GERD (gastroesophageal reflux disease) K21.9 (1) Chronic pain Chronic pain type: other chronic pain Qualified Code(s): G89.29 - Other chronic pain
--- NOTE | 2022-07-04 15:13 | Pharmacy Report ---
Pharmacy Glycemic Sign Off Nt - Date of Service July 04, 2022 - Assessment & Plan ASSESSMENT: * Pharmacy was consulted by Dr Rico on 07/03/22 for glycemic control and to write orders per [facility] inpatient glycemic control protocol. * Major changes made by pharmacy to antidiabetic regimen include: * Added novolog sliding scale * Patient has been receiving/requiring 1 unit of insulin per day for adequate glycemic control * BSGs ranging 100 - 160 mg/dl * Do not anticipate further changes in patient status that would quickly deteriorate glycemic control (i.e. patient to be NPO for upcoming procedure, steroids tapering, starting tube feedings, etc). * Please see recommendations for outpatient antidiabetic regimen below. PLAN FOR INPATIENT GLYCEMIC CONTROL: No changes needed to current regimen. * Basal insulin not required at this time. * Continue NovoLog per scale ACHS/Q6hrs while NPO * Goal range = 120 - 150 mg/dl * CF = 30 mg/dl/unit * CR = 1 unit for ever 20 g CHO consumed * Pharmacy is signing off of glycemic consult and will no longer be making adjustments to inpatient regimen. Please feel free to re-consult if needed. Thank you.
[2022-07-04] MEDS: AMITRIPTYLINE HCL 50 MG TAB PO SCH (20:51)
[2022-07-04] MEDS: GABAPENTIN 400 MG CAP PO SCH (20:52)
[2022-07-04] MEDS ORDERED: MELATONIN 3 MG TAB PO PRN (21:02)
[2022-07-05] MEDS: AMPICILLIN/SULBACTAM SOD 3,000 MG in 0.9 % SODIUM CHLORIDE 100 ML IV SCH ×2 (04:32→10:37)
[2022-07-05] MEDS: HEPARIN SOD 5,000 UNIT/0.5 ML VIAL SQ SCH (04:36)
[2022-07-05 06:51] LABS: Hematocrit (blood only) 42.5 % (34.1-44.9); Hemoglobin 13.8 g/dl (12.0-16.0); Mean Corpuscular Hemoglobin 29.6 pg (25.0-34.0); Mean Corpuscular Hgb Conc 32.5 g/dL (32.0-36.0); Mean Corpuscular Volume 91.2 fL (80.0-100.0); Mean Platelet Volume 10.6 fL (9.4-12.3); Platelet Count 195 K/uL (130-400); Red Blood Count 4.66 M/uL (3.93-5.22); White Blood Count 9.66 K/ul (4.8-10.8)
[2022-07-05 07:24] VITALS: BP 171/93; TEMP 99; O2SAT 93
[2022-07-05 07:27] LABS: Albumin Globulin Ratio 1.2 (0.9-2); Albumin Level 3.5 gm/dl (3.4-5.0); BUN Creatinine Ratio 21.3 (10-20); Bilirubin,Total 0.9 mg/dl (0.2-1.0); Calcium 8.8 mg/dl (8.5-10.1); Creatinine Clr Calc Pharmacy 132.4 ml/min; Est GFR (Non-African American) 99.2 ml/min; Globulin 2.9 gm/dl (2.5-4.0); Magnesium 1.7 mg/dl (1.7-2.4); Potassium 3.6 mmol/L (3.5-5.1); Total Protein 6.4 gm/dl (6.0-8.3)
[2022-07-05] MEDS: INSULIN ASPART PER UNIT SC SCH (08:26)
[2022-07-05] MEDS: METHADONE ORAL SOLN 2 MG/ML PO SCH (09:12)
[2022-07-05] MEDS: GABAPENTIN 400 MG CAP PO SCH (09:14)
[2022-07-05] MEDS: ASPIRIN 81 MG ECTAB PO SCH (09:16)
[2022-07-05] MEDS: NICOTINE 21 MG/24 HR TDSY TD SCH (09:17)
[2022-07-05] MEDS: FLUTICASONE/VILANTEROL 100/25MCG 14 PUFFS/INHALER INH SCH (09:19)
[2022-07-05] MEDS: PATIENT'S OWN CONTROLLED MED 2 PO SCH (09:20)
[2022-07-05] MEDS ORDERED: AZITHROMYCIN 250 MG TAB PO ONE (10:02)
[2022-07-05 10:17] VITALS: PULSE 78
--- NOTE | 2022-07-05 13:58 | Discharge Summary ---
Date of Service July 05, 2022 Admission HPI Per Admitting Provider Patient is a 61-year-old female with a past medical history of hypertension, neuropathy, marijuana use, anxiety/depression/panic, DM, hypertriglyceridemia, hemochromatosis heterozygote, asthma/COPD overlap presents with acute shortness of breath and new oxygen requirement and he was found to have bilateral pneumonia. No sob now, was previously No chest pain She reprots when she woke up yesterday morning she felt a little out of it and short of breath. Per her daughter for 6 months off and on she has had worsening spells of fatigue. She smokes marijuana intermittently and thought it was related but more recently has been worse and was noted to be hypoxic on admit. 10-15 good days then 3-4 really bad days. COnfusion is waxing and waning but hits very hard. This morning when she woke up she was so short of breath she couldnt talk and grabbed nebulizer but did feel some pain in the chest while using the nebulizer and was brought to [facility] for evaluation. Has had pain in her mid-back. Took Medications Uses recreational marijuana. Has chronic pain. Did smoke yesterday Heavy smoker. Rolls own cigarettes, smokes equivalent of 2 packs per day plus rolled ciragettes. Lungs hurting bad and has slowed down. Methadone 131mg from [facility]. +fevers, chills, +night sweats +weakness Medical History: Reviewed Medications: Reviewed. Took meds today. takes in the morning, Surgical History: Reviewed Allergies: Reviewed Social History: Tobacco as above. No alcohol. No other rec drug use. Code Status: Surrogate DM would be daughter Linnea Mata [phone]. Full Code. Principal Diagnosis Bilateral pneumonia Possible metabolic encephalopathy Discharge Exam Constitutional WD/WN, vitals as above Eyes EOM intact bilaterally; no conjunctival abnormality ENMT external ear and nose normal, oropharynx normal Neck trachea midline, no thyromegaly normal visual inspection Respiratory normal respiratory effort, lungs clear to auscultation no respiratory distress Cardiovascular RRR, no murmur, no edema Gastrointestinal (Abdomen) Inspection/Auscultation: abdomen normal to inspection; abdomen not distended Musculoskeletal no cyanosis or clubbing, extremities motor strength 5/5 Skin no rashes, warm and dry Neurologic moves all extremities and awake Speech / Cognition: + abnormal speech (Somewhat hoarse voice.) Psychiatric Orientation: alert, oriented to person and cooperative Discharge Data Allergies Allergy/AdvReac Type Severity Reaction Status Date / Time varenicline Allergy Severe DIFFICULTY Verified 05/03/22 14:41 BREATHING bupropion AdvReac Intermediate INCREASED Verified 05/03/22 14:41 PANIC DISORDER fluoxetine AdvReac Intermediate INCREASES Verified 05/03/22 14:41 PANIC DISORDER venlafaxine AdvReac Intermediate INCREASES Verified 05/03/22 14:41 PANIC DISORDER Consultations 07/03/22 12:49 ED Decision to Admit Stat Ordered Studies 07/03/22 11:50 CT angio chest PE protocol Stat 07/03/22 12:00 CT head/brain wo con Stat 07/04/22 11:00 FL video swallow Routine 07/04/22 15:38 US liver Urgent Hospital Course (1) Acute respiratory failure with hypoxia: Patient is a 61-year-old female with a past medical history of hypertension, neuropathy, marijuana use, anxiety/depression/panic, DM, hypertriglyceridemia, hemochromatosis heterozygote, asthma/COPD overlap presents with acute shortness of breath and new oxygen requirement and he was found to have bilateral pneumonia. In discussion, patient does have a history of aspiration following polyp removal. Is a daily heavy smoker with additional recreational marijuana use from uncontrolled source. Does use methadone from [facility] for chronic pain/dependence. Acute hypoxic respiratory failure 2/2 CAP - ?aspiration, patient with history of polyp removal and reports multiple aspiration events in the past CTA: No PE. Bilateral consolidation consistent with pneumonia, possible subcarinal reactive lymph nodes Continue Unasyn; plan to switch to Augmentin on discharge to finish course. - Continue azithromycin for atypical with ? COPD exacerbation. Daily heavy tobacco use. Patch ordered. - Did well. Switched to Augmentin x 5 more days on discharge and finish 4 more days of azithromycin. Returned to room air by discharge and no fevers in last 24 hours of admission. F/u with PCP in 1 week. Aspiration: Concern for aspiration due to pneumonia pattern and hx of laryngeal surgery. Video swallow with [employer] showed no aspiration, but patient encouraged to take small bites, small sips as on the test she came close to aspiration with large swallows. Possible metabolic encephalopathy present in ED, though returned to baseline by 07/04 on my interview. Hereditary hemochromatosis heterozygote Follows with CCP C282Y heterozygous, secondary other further paresis in the setting of tobacco use Phlebotomy held at February/2022 follow-up due to diminished ferritin levels. LFTs have up trended. Liver ultrasound showed dilated biliary ductal system. Hepatitis panel pending on discharge. Repeat iron labs showed ferritin 17, high unsaturated IBC. -> LFTs trended down to baseline by discharge. Consider hepatology f/u. Given increased risk AFP ordered, pending on discharge. Chronic pain Following with ortho spine, has received Solu-Medrol treatment in the past and injections with pain management which have not helped Continued amitriptyline 150 mg p.o. nightly, methocarbamol, methadone DM A1c was 6.3% this admission. On metformin 500 mg p.o. twice daily monotherapy Held home metformin while inpatient, but return to this on discharge. Hypertension BP was 130/70 - 170/90 in the hospital, but no symptoms. PCP f/u Asthma COPD overlap, AoC COPD No PFTs available for review History of asthma, patient is a heavy marijuana and cigarette smoker Wheezes appreciated on admission; none by 07/04. - Received dex 10 on admit. Additional deferred as wheezing is improving and +bacterial PNA - Continue inhalers, duonebs prn, budesonide inh BID 2nd line PRN - Continue azithro x5 day course. QtC <480 - incentive juan/flutter (2) Altered mental state: (3) Chronic obstructive asthma: (4) Chronic pain: (5) Diabetes mellitus: (6) Hemochromatosis carrier: (7) Hypertriglyceridemia: (8) Marijuana smoker: (9) Panic disorder: (10) Current every day smoker: (11) GERD (gastroesophageal reflux disease): Total Time Total Time Spent Total Time Spent (In Minutes): 35 Discharge Plan Discharge Items Patient Disposition: Home - Self-Care Reason For Visit: AHRF 2/2 PNA,ASPIRATION RISK Discharge Diagnosis: Pneumonia Activity: Resume your previous activity Non-emergency contact: Primary Care Provider Call non-emergency contact if: your symptoms worsen and your temperature is above 101 Follow-up/Referrals: Eunice Velasquez MD [Primary Care Provider] - 07/11/22 10:30 am (Bianca Rhoades) Diet: Carb Consistent or DM2 Addtl Attending Provider Instructions: Ms. Mata, You were admitted to the hospital with pneumonia in both lungs. You needed oxygen when you came in, but fortunately, you did really well once we started antibiotics. You are being discharged with a few more days of antibiotics to help finish off the pneumonia. 1) You will take Augmentin twice a day for 5 more days. The first dose should be tonight before bedtime. 2) You will take azithromycin once a day for 4 more days. The first dose should be tomorrow morning. While you were here, you did a video swallow that showed no aspiration. This is great news! However, the speech therapist did recommend you take small bites and small swallows because when you took large swallows, liquid got close to going down into the lungs. Please see your PCP in 1-2 weeks to be sure you are doing well. Please call your PCP's office if you have more shortness of breath, any fevers at home (>100.5 degrees), more cough, nausea, vomiting, or any issues that prevents you from taking the antibiotoics. I hope you feel better soon! Godwin Viera Pending Studies at Discharge: No Stand-Alone Forms: My [facility], Smoking Cessation Medications and DC Order Prescriptions: New azithromycin 250 mg tablet 250 mg PO DAILY Qty: 4 0RF amoxicillin-pot clavulanate 875-125 mg tablet 1 tab PO BID Qty: 10 0RF Continued methadone 10 mg/mL concentrate 149 mg PO QAM Breo Ellipta 100-25 mcg/dose blister with device 1 inh inhalation DAILY Qty: 60 5RF metformin 500 mg tablet 500 mg PO BID Qty: 180 1RF gabapentin 800 mg tablet 800 mg PO TID Qty: 90 5RF Metamucil 3.4 gram/5.4 gram powder 1 tbsp PO BID PRN (Reason: constipation) Qty: 660 11RF Rx Instructions: mix into at least 4 oz water or juice before administering amitriptyline 150 mg tablet 150 mg PO HS Qty: 90 3RF methocarbamol 750 mg tablet 750 mg PO QID PRN (Reason: CHRONIC PAIN) Qty: 60 11RF Rx Instructions: TAKE 1 TABLET BY MOUTH 4 TIMES DAILY NEEDED FOR CHRONIC PAIN. ipratropium-albuterol 0.5 mg-3 mg(2.5 mg base)/3 mL solution for nebulization 3 ml inhalation QID PRN (Reason: wheezing) Qty: 90 0RF albuterol sulfate 90 mcg/actuation HFA aerosol inhaler 2 puff inhalation QID PRN (Reason: shortness of breath or wheezing) Qty: 6.7 0RF aspirin [Adult Low Dose Aspirin] 81 mg tablet,delayed release (DR/EC) 81 mg PO QAM prednisone 20 mg tablet See Rx Instructions PO .COMPLEX Qty: 30 0RF Rx Instructions: 3 tabs PO daily X 5 days, then 2 tabs PO daily X 5 days, then 1 tab PO daily X 5 days, then stop. naloxone [Narcan] 4 mg/actuation spray,non-aerosol 1 spray intranasal DIRECTED PRN (Reason: NEEDED) Discharge Orders: Discharge Order (Routine); Ordered 07/05/22 Ordered By: Godwin Veira Admission Data Admit Date/Time: 07/03/22 13:53 Attending Provider: Godwin Viera Admit Provider: Rafael Rico Primary Care Provider: Eunice Velasquez Other Providers: Rafael Rico Other Interventions: Discharge Summary Assessment (RN) Last Done: 07/05/22 10:14 Coding Level of Care Code D/C DAY MANAGEMENT >30 MINS Diagnoses Acute respiratory failure with hypoxia J96.01 Altered mental state R41.82 Chronic obstructive asthma J44.9 Chronic pain G89.29 Chronic pain type: other chronic pain Diabetes mellitus E11.9 Hemochromatosis carrier Z14.8 Hypertriglyceridemia E78.1 Marijuana smoker F12.90 Panic disorder F41.0 Current every day smoker F17.200 GERD (gastroesophageal reflux disease) K21.9
[2022-07-07 10:12] LABS: AFP Tumor Marker Serum 8.1 ng/mL; HBSAG NON-REACTIVE (NON-REACTIVE); Hepatitis A Antibody IgM NON-REACTIVE (NON-REACTIVE); Hepatitis B Core Antibody IgM NON-REACTIVE (NON-REACTIVE)
[2022-07-08 07:59] LABS: Hepatitis C Viral RNA by PCR 6370 IU/mL (NOT DETECTED)
== END 2022-07-05 13:15 | disposition home or self-care (01) | DRG 193 ==
LOC: ED 10:18 → SUATTDRO 13:53 → EDINP 13:53 → 2S 16:05
DX: G89.29 Other chronic pain; J15.9 Unspecified bacterial pneumonia; G93.41 Metabolic encephalopathy; J44.1 Chronic obstructive pulmonary disease with (acute) exacerbation; J96.01 Acute respiratory failure with hypoxia; Z79.899 Other long term (current) drug therapy; Z79.82 Long term (current) use of aspirin; F12.90 Cannabis use, unspecified, uncomplicated; Z88.8 Allergy status to other drugs, medicaments and biological substances; Z79.51 Long term (current) use of inhaled steroids; F41.0 Panic disorder [episodic paroxysmal anxiety]; R74.01 Elevation of levels of liver transaminase levels; Z80.1 Family history of malignant neoplasm of trachea, bronchus and lung; F17.210 Nicotine dependence, cigarettes, uncomplicated; Z79.84 Long term (current) use of oral hypoglycemic drugs; I10 Essential (primary) hypertension; R74.8 Abnormal levels of other serum enzymes; J44.0 Chronic obstructive pulmonary disease with (acute) lower respiratory infection; E11.40 Type 2 diabetes mellitus with diabetic neuropathy, unspecified; Z79.891 Long term (current) use of opiate analgesic; E83.110 Hereditary hemochromatosis

== ENCOUNTER 2022-07-13 16:27 | Inpatient (IN) ==
[2022-07-13 17:39] LABS: Basophils # (auto) 0.06 K/uL (0-0.2); Basophils % (auto) 0.7 %; Eosinophils # (auto) 0.19 K/uL (0-0.50); Eosinophils % (auto) 2.2 %; Hematocrit (blood only) 44.4 % (34.1-44.9); Hemoglobin 14.6 g/dl (12.0-16.0); Lymphocytes # (auto) 2.13 K/uL (1.2-3.4); Lymphocytes % (auto) 24.8 %; Mean Corpuscular Hemoglobin 29.6 pg (25.0-34.0); Mean Corpuscular Hgb Conc 32.9 g/dL (32.0-36.0); Mean Corpuscular Volume 89.9 fL (80.0-100.0); Monocytes # (auto) 0.64 K/uL (0.24-0.82); Monocytes % (auto) 7.4 %; Neutrophils # (auto) 5.49 K/uL (1.4-6.5); Neutrophils % (auto) 63.9 %; Platelet Count 312 K/uL (130-400); RDW Coefficient of Variation 13.2 % (11.5-14.5); RDW Standard Deviation 43.5 fL (36.4-46.3); Red Blood Count 4.94 M/uL (3.93-5.22)
[2022-07-13 17:40] LABS: Immature Granulocytes # (auto) 0.09 K/uL (0.00-0.02)
[2022-07-13] MEDS ORDERED: SODIUM CHLORIDE 0.9% 1000ML 1,000 ML IV ONE (17:48)
[2022-07-13] MEDS ORDERED: ONDANSETRON INJ 2 MG/ML 2 ML VIAL IV STA (17:48)
[2022-07-13] MEDS ORDERED: methylPREDNISolone 125 MG/2 ML VIAL IV STA (17:48)
[2022-07-13] MEDS ORDERED: FAMOTIDINE 20MG IV PUSH 20 MG/5 ML SYR IV STA (17:48)
[2022-07-13 17:50] LABS: INR 1.1 (0.9-1.1); Partial Thromboplastin Time 28.6 Seconds (21.0-31.0); Prothrombin Time 11.9 Seconds (9.0-12.0)
[2022-07-13] MEDS ORDERED: ALBUT/IPRATROP 3MG/0.5MG NEB 3 ML VIAL NEB STA (17:51)
[2022-07-13] MEDS ORDERED: guaiFENesin 600 MG TABCR PO STA (17:51)
[2022-07-13 18:12] LABS: Troponin I High Sensitivity 6.7 pg/ml (0-14)
--- NOTE | 2022-07-13 18:12 | XRay Report ---
XR chest 1V portable CLINICAL HISTORY: Shortness of breath. COMPARISON STUDY: Chest CT July 03, 2022. Chest radiograph July 11, 2022. FINDINGS: Lung volumes are normal. There is no pneumothorax or pleural effusion. Cardiac mediastinal silhouette is normal. Reticulonodular interstitial thickening persists. Right mid and lower lung airs pace opacity is improved. IMPRESSION: Reticulonodular interstitial thickening and bilateral airspace opacities, minimally impro misty since prior exam. The findings favor pneumonia. ACT 112: Negative or not required by law. Electronically signed by: Daniele Agudelo M.D. 07/13/2022 6:11 PM
[2022-07-13 18:16] LABS: Albumin Level 3.7 gm/dl (3.4-5.0); BUN Creatinine Ratio 8.8 (10-20); Bilirubin,Total 0.5 mg/dl (0.2-1.0); Calcium 9.8 mg/dl (8.5-10.1); Creatinine Clr Calc Pharmacy 116.3 ml/min; Est GFR (Non-African American) 95.7 ml/min; Globulin 3.6 gm/dl (2.5-4.0); Magnesium 1.8 mg/dl (1.7-2.4); Potassium 3.9 mmol/L (3.5-5.1); Total Protein 7.3 gm/dl (6.0-8.3)
[2022-07-13 19:12] LABS: Influenza A virus by PCR Negative (Neg); Influenza B virus by PCR Negative (Neg); RSV by PCR Negative (Neg); SARS CoV2 RNA(COVID-19) InHosp NEGATIVE (Negative)
[2022-07-13] MEDS ORDERED: OPTIRAY 300 500mL IV ONE (19:26)
--- NOTE | 2022-07-13 19:48 | CT Scan Report ---
CHEST CTA for PULMONARY ARTERIES CT DOSE: 1012.29 mGy.cm HISTORY: Shortness of breath. Recent pneumonia. TECHNIQUE: Multiaxial CT images of the chest were performed following the intravenous administration of contrast to evaluate the pulmonary arteries. Maximal intensity projection images were also obtaine d. A dose lowering technique was utilized adhering to the principles of ALARA. COMPARISON STUDY: Chest CTA 07/03/2022. FINDINGS: Mild anterior wedging at T7, unchanged. This is likely chronic. No acute fractures identifi ed within the chest. No pneumothorax. The central airways appear patent. There is respiratory motion artifact. Bilateral lower lobe airspace opacities have improved. There are few new scattered multifoc al groundglass airspace opacities seen throughout the lungs. Findings likely represent a multifocal a typical pneumonia could be due to a viral process. There is mild paraseptal and centrilobular emphyse ma. The liver and spleen are partially visualized but appear enlarged. This remains unchanged. The vi sualized adrenal glands are unremarkable. No pleural or pericardial effusions. The thyroid gland enha nces normally. Borderline mediastinal lymphadenopathy, unchanged. This may be reactive to the suspect ed pneumonia. The heart remains mildly enlarged. Mild atherosclerotic plaque within the normal calibe r thoracic aorta. No evidence for an aortic dissection. There is moderate coronary artery calcificati ons again noted. The bilateral lower lobe segmental and subsegmental pulmonary arteries are nondiagno stic due to the respiratory motion artifact. However, the remaining pulmonary arteries show no fillin g defects to suggest a pulmonary embolus. IMPRESSION: 1. No evidence for pulmonary embolus with limitations as described above. 2. The bilateral lower lobe airspace opacities have improved. However, there are a few new scattered multifocal groundglass airspace opacities seen throughout the lungs. Findings likely represent a mult ifocal atypical pneumonia and could be due to a viral process. 3. Mild emphysema. 4. Borderline mediastinal lymphadenopathy, unchanged. This could be reactive. 5. Hepatosplenomegaly, unchanged. ACT 112: Negative or not required by law. Electronically signed by: Thor Harden M.D. 07/13/2022 7:46 PM
--- NOTE | 2022-07-13 20:10 | Emergency Department Note ---
Impression & Plan Pneumonia, COPD (chronic obstructive pulmonary disease), BARLOW (dyspnea on exertion) ED Provider Note NAME: ROSE GELLER AGE: 61 SEX: F ARRIVES VIA: Walk-In INFORMANT: Patient ED PROVIDER(S): Zen Hager MD CHIEF COMPLAINT: SOB, referred. PLAN: Disposition: Home MEDICAL DECISION MAKING: The patient is a pleasant 61-year-old woman with a past medical history of asthma/COPD, hypertension, hyperlipidemia, neuropathy, diabetes, hemochromatosis who presents to emergency department accompanied by family, referred by her primary care doctor's office after they were having oxygen arranged for home due to desaturation with minimal exertion. However they report that they then understand that her x-ray from 2 days ago was reviewed and given that it did not show improvement they were referred to the emergency department for evaluation and admission including IV antibiotics. They do acknowledge as per was documented 2 days ago that the patient has not had any worsening cough or congestion but just no significant change since her discharge a week ago. The patient had been admitted at that time for pneumonia with concern for aspiration and completed course of Augmentin and today completed a course of azithromycin. They report that because she was referred to the emergency department for admission that her oxygen was canceled. On arrival the patient is fatigued appearing but no acute distress, afebrile with stable vital signs. Her O2 saturation at rest is 90-93% without increased work of breathing. She has scant intermittent wheeze and subtle rhonchi at the bases. EKG without overt acute ischemia. Chest x-ray appears unchanged to slightly improved. WBC, H/H and platelets within normal limits. Chemistry without meta bolic acidosis. Lactic acid 1.1, within normal limits. Electrolytes without significant abnormality. LFTs similar to prior. High-sensitivity troponin 6.7, within normal limits. BNP within normal limits. Procalcitonin is not elevated. COVID-19 PCR was negative. Influenza PCR was also negative. CT of the chest was performed and was negative for PE and while does show improvement of previous pneumonia note is made of scattered multifocal groundglass opacities throughout the lungs that are suggestive of a multifocal atypical pneumonia or viral pneumonia. Unfortunately, given the patient's home oxygen was canceled with continued shortness of breath with exertion and desaturation the patient and family initially were preferring admission. Admission process was initiated however I was later alerted by RN that the patient was reporting that she felt improved and preferred to not be admitted and continue with outpatient follow- up. I met with the patient and the family and they did feel that she might did improve significantly with her treatment with IV fluid hydration, steroids, DuoNeb. Guaifenesin. Admitting team was updated. Appreciate subsequent co nsultation. We will proceed with outpatient follow-up. Patient was given oral Levaquin and she will discontinue her azithromycin at this time. She will proceed with steroid burst. Additional home management including continuation of the use of her Acapella valve recent admission and she was provided with incentive spirometer. findings, return instruction plan for follow-up reviewed with patient and her family at bedside. All were in agreement and the patient was discharged per instructions. Triage Nursing notes reviewed and agree them. Prior medical records reviewed Differential diagnosis: Reactive airway disease, pneumonia, pneumothorax, COPD, CHF, infections, cardiac ischemia, pulmonary embolism, musculoskeletal, gastrointestinal, as well as other pathologies. ER treatment provided: See below. Diagnostics interpreted by me: ECG: Normal sinus rhythm, 88 bpm, no ectopy, left anterior fascicular block, no overt ST elevation or depression, QTC 491, QRS 108. Cardiac Monitoring: An order for continuous cardiac monitoring was placed and demonstrated Normal sinus rhythm, 88 bpm, no ectopy,. Laboratory studies: See below Imaging studies: See below Consultation(s): Daniella Beckham [facility] [place] PAC with Dr. Palm, [facility] [place] hospitalist. HPI: The patient is a pleasant 61-year-old woman with a past medical history of asthma/COPD, hypertension, hyperlipidemia, neuropathy, diabetes, hemochromatosis who presents to emergency department accompanied by family, referred by her primary care doctor's office after they were having oxygen arranged for home due to desaturation with minimal exertion. However they report that they then understand that her x-ray from 2 days ago was reviewed and given that it did not show improvement they were referred to the emergency department for evaluation and admission including IV antibiotics. They do acknowledge as per was documented 2 days ago that the patient has not had any worsening cough or congestion but just no significant change since her discharge a week ago. The patient had been admitted at that time for pneumonia with concern for aspiration and completed course of Augmentin and today completed a course of azithromycin. They report that because she was referred to the emergency department for admission that her oxygen was canceled. ROS: See above HPI for pertinent positives & negatives. A total of 10 systems reviewed and were otherwise negative. VITALS:See Below PHYSICAL EXAMINATION: GENERAL: Awake, alert, fatigued-appearing, in no distress HENT: Normocephalic, atraumatic. Oropharynx with dry mucous membranes and otherwise unremarkable. EYES: Normal conjunctiva. Sclera non-icteric. NECK: Supple. No nuchal rigidity. FROM. No JVD. RESPIRATORY: Scant intermittent wheeze and subtle rhonchi at the bases. CARDIAC: Regular rate, normal rhythm. Extremities warm and well perfused. Pulses equal. ABDOMEN: Soft, non-distended. No tenderness to palpation. No rebound or guarding. No masses. RECTAL: Deferred. MUSCULOSKELETAL: Chest examination reveals no tenderness. The back is symmetrical on inspection without obvious abnormality. There is no CVA tenderness to palpation. No joint edema. LOWER EXTREMITIES: Calves are equal size bilaterally and non-tender. No edema. No discoloration. NEURO: Normal sensorium. No sensory or motor deficits noted. SKIN: No rash or jaundice noted. 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 reports injury to left during vocal cord polypectomy Surgical History History of colonoscopy History of esophagogastroduodenoscopy (EGD) History of laparoscopy History of loop electrical excision procedure (LEEP) History of lumbar surgery History of prior ablation treatment (2013) vaginal lesions History of tubal ligation History of vocal cord polypectomy Family History Father Diabetes Myocardial infarction Lung cancer Hypertension Mother Diabetes Cardiac disorder Hypertension Grandfather (Maternal) Diabetes Grandmother (Maternal) Diabetes Unknown Heart disease Sister Myocardial infarction Grandfather (Paternal) Diabetes Grandmother (Paternal) Diabetes Brother Retinoblastoma Other No family history of adverse response to anesthesia Denies family history of Ovarian cancer Prostate cancer Osteoporosis Breast cancer Bleeding disorder Colorectal cancer Social History Smoking Status: Current every day smoker Tobacco Type: Cigarettes Age Started Using Tobacco: 17; Cigarettes Per Day: 12-14; Second Hand Exposure: Yes; Hx Alcohol Use: Yes Alcohol type: beer Hx Substance Use: No Preferred Language: Divehi Communication Ability: Effective Visual Impairment: No Limitations Hearing Ability: Normal Box Spinner Required: No Beliefs That Will Affect Care: None marital status: / Current Living Situation: Alone current occupational status: unemployed and disabled How many Children do You have: 4 Feels Safe at Home: Yes Childhood Exposure to Second-Hand Smoke: Yes caffeine: Yes Dental Care, Regularly: Yes Physical Activity Frequency: 5-6 Times per Week Seatbelt Use: always Sunscreen Use: Yes Assistive Devices: Nebulizer Allergies Allergies Allergy/AdvReac Type Severity Reaction Status Date / Time varenicline Allergy Severe DIFFICULTY Verified 07/13/22 18:27 BREATHING bupropion AdvReac Intermediate INCREASED Verified 07/13/22 18:27 PANIC DISORDER fluoxetine AdvReac Intermediate INCREASES Verified 07/13/22 18:27 PANIC DISORDER venlafaxine AdvReac Intermediate INCREASES Verified 07/13/22 18:27 PANIC DISORDER Home Meds Home Medications Medication Instructions Recorded Confirmed methadone 10 mg/mL oral concentrate 149 mg PO QAM 08/19/19 07/13/22 aspirin 81 mg tablet,delayed 81 mg PO QAM 07/07/20 07/13/22 release (Adult Low Dose Aspirin) naloxone 4 mg/actuation nasal 1 spray intranasal DIRECTED PRN 04/16/22 07/13/22 spray (Narcan) NEEDED Previous Rx's Medication Instructions Recorded fluticasone furoate 100 1 inh inhalation DAILY #60 ea 06/15/21 mcg-vilanterol 25 mcg/dose inhalation powder (Breo Ellipta) metformin 500 mg tablet 500 mg PO BID #180 tabs 09/22/21 albuterol sulfate 90 mcg/actuation 2 puff inhalation QID PRN 11/07/21 aerosol inhaler shortness of breath or wheezing #6.7 grams ipratropium 0.5 mg-albuterol 3 mg 3 ml inhalation QID PRN wheezing 11/07/21 (2.5 mg base)/3 mL nebulization #90 mL soln gabapentin 800 mg tablet 800 mg PO TID #90 tabs 03/24/22 psyllium husk 3.4 gram/5.4 gram 1 tbsp PO BID PRN constipation 04/06/22 oral powder (Metamucil) #660 grams amitriptyline 150 mg tablet 150 mg PO HS #90 tabs 04/14/22 methocarbamol 750 mg tablet 750 mg PO QID PRN CHRONIC PAIN #60 05/16/22 tabs Saccharomyces boulardii 250 mg 250 mg PO BID #20 caps 07/13/22 capsule (Florastor) levofloxacin 750 mg tablet 750 mg PO DAILY 10 days #10 tabs 07/13/22 prednisone 20 mg tablet 60 mg PO DAILY 4 days #12 tabs 07/13/22 Results & Data (ED) Vital Signs Vital Signs - 24 hr 07/13/22 16:36 07/13/22 17:36 07/13/22 18:28 Temperature 36 C L Temperature Source Temporal Artery Scan Pulse Rate 90 90 Pulse Rate [Left] Pulse Rate from SpO2 Sensor Pulse Rhythm Regular Respiratory Rate 22 22 Respiratory Effort / Characteristics Non-Labored Spontaneous Respiratory Depth Normal Respiratory Pattern Regular Blood Pressure 165/83 H Blood Pressure Mean 110 Pulse Oximetry 93 93 93 Oxygen Delivery Method Room Air Room Air Room Air Sepsis Recent Fever Within 48 Hours No Sepsis New/Unexplained Change in Mental Status No Sepsis Action Taken by Nursing No Action Required 07/13/22 18:28 07/13/22 19:30 Temperature Temperature Source Pulse Rate 80 Pulse Rate [Left] 78 Pulse Rate from SpO2 Sensor 80 Pulse Rhythm Respiratory Rate 18 20 Respiratory Effort / Characteristics Respiratory Depth Respiratory Pattern Blood Pressure 154/76 H Blood Pressure Mean 102 Pulse Oximetry 97 93 Oxygen Delivery Method Nebulizer Room Air Sepsis Recent Fever Within 48 Hours Sepsis New/Unexplained Change in Mental Status Sepsis Action Taken by Nursing Laboratory Data Attestation: I reviewed the patient's lab results. Result diagrams: 07/13/22 17:30 07/13/22 17:30 Lab Results 07/13/22 07/13/22 07/13/22 Range/Units 17:30 17:30 17:30 WBC 8.60 (4.8-10.8) K/ul RBC 4.94 (3.93-5.22) M/uL Hgb 14.6 (12.0-16.0) g/dl Hct 44.4 (34.1-44.9) % MCV 89.9 (80.0-100.0) fL MCH 29.6 (25.0-34.0) pg MCHC 32.9 (32.0-36.0) g/dL RDW Std Deviation 43.5 (36.4-46.3) fL RDW Coeff of Daniel 13.2 (11.5-14.5) % Plt Count 312 (130-400) K/uL MPV 9.0 L (9.4-12.3) fL Immature Gran % (Auto) 1.0 % Neut % (Auto) 63.9 % Lymph % (Auto) 24.8 % Burnet % (Auto) 7.4 % Eos % (Auto) 2.2 % Baso % (Auto) 0.7 % Neut # (Auto) 5.49 (1.4-6.5) K/uL Lymph # (Auto) 2.13 (1.2-3.4) K/uL Burnet # (Auto) 0.64 (0.24-0.82) K/uL Eos # (Auto) 0.19 (0-0.50) K/uL Baso # (Auto) 0.06 (0-0.2) K/uL Immature Gran # (Auto) 0.09 H (0.00-0.02) K/uL PT 11.9 (9.0-12.0) Seconds INR 1.1 (0.9-1.1) APTT 28.6 (21.0-31.0) Seconds PTT Ratio 1.0 Sodium 138 (136-145) mmol/L Potassium 3.9 (3.5-5.1) mmol/L Chloride 101 (98-107) mmol/L Carbon Dioxide 28 (21-32) mmol/L Anion Gap 9 (3-11) BUN 6 (6-23) mg/dl Creatinine 0.68 (0.6-1.2) mg/dl Est Cr Clr Drug Dosing 116.3 ml/min Est GFR ( Amer) 111.0 ml/min Est GFR (Non-Af Amer) 95.7 ml/min BUN/Creatinine Ratio 8.8 L (10-20) Glucose 130 H (70-99(Fasting)) mg/dl Lactate (0.4-2.0) mmol/L Calcium 9.8 (8.5-10.1) mg/dl Phosphorus (2.5-4.9) mg/dl Magnesium 1.8 (1.7-2.4) mg/dl Total Bilirubin 0.5 (0.2-1.0) mg/dl AST 84 H (13-39) U/L ALT 70 H (7-52) U/L Alkaline Phosphatase 77 (34-104) U/L Troponin I High Sens 6.7 D (0-14) pg/ml B-Natriuretic Peptide (0-100) pg/ml Total Protein 7.3 (6.0-8.3) gm/dl Albumin 3.7 (3.4-5.0) gm/dl Globulin 3.6 (2.5-4.0) gm/dl Albumin/Globulin Ratio 1.0 (0.9-2) Procalcitonin (0-0.5) ng/ml SARS-CoV-2 (PCR) (Negative) Influenza Type A (PCR) (Neg) Influenza Type B (PCR) (Neg) RSV (RT-PCR) (Neg) 07/13/22 07/13/22 07/13/22 Range/Units 17:30 18:08 18:08 WBC (4.8-10.8) K/ul RBC (3.93-5.22) M/uL Hgb (12.0-16.0) g/dl Hct (34.1-44.9) % MCV (80.0-100.0) fL MCH (25.0-34.0) pg MCHC (32.0-36.0) g/dL RDW Std Deviation (36.4-46.3) fL RDW Coeff of Daniel (11.5-14.5) % Plt Count (130-400) K/uL MPV (9.4-12.3) fL Immature Gran % (Auto) % Neut % (Auto) % Lymph % (Auto) % Burnet % (Auto) % Eos % (Auto) % Baso % (Auto) % Neut # (Auto) (1.4-6.5) K/uL Lymph # (Auto) (1.2-3.4) K/uL Burnet # (Auto) (0.24-0.82) K/uL Eos # (Auto) (0-0.50) K/uL Baso # (Auto) (0-0.2) K/uL Immature Gran # (Auto) (0.00-0.02) K/uL PT (9.0-12.0) Seconds INR (0.9-1.1) APTT (21.0-31.0) Seconds PTT Ratio Sodium (136-145) mmol/L Potassium (3.5-5.1) mmol/L Chloride (98-107) mmol/L Carbon Dioxide (21-32) mmol/L Anion Gap (3-11) BUN (6-23) mg/dl Creatinine (0.6-1.2) mg/dl Est Cr Clr Drug Dosing ml/min Est GFR ( Amer) ml/min Est GFR (Non-Af Amer) ml/min BUN/Creatinine Ratio (10-20) Glucose (70-99(Fasting)) mg/dl Lactate 1.1 (0.4-2.0) mmol/L Calcium (8.5-10.1) mg/dl Phosphorus 4.6 (2.5-4.9) mg/dl Magnesium (1.7-2.4) mg/dl Total Bilirubin (0.2-1.0) mg/dl AST (13-39) U/L ALT (7-52) U/L Alkaline Phosphatase (34-104) U/L Troponin I High Sens (0-14) pg/ml B-Natriuretic Peptide (0-100) pg/ml Total Protein (6.0-8.3) gm/dl Albumin (3.4-5.0) gm/dl Globulin (2.5-4.0) gm/dl Albumin/Globulin Ratio (0.9-2) Procalcitonin 0.12 (0-0.5) ng/ml SARS-CoV-2 (PCR) (Negative) Influenza Type A (PCR) (Neg) Influenza Type B (PCR) (Neg) RSV (RT-PCR) (Neg) 07/13/22 07/13/22 Range/Units 18:08 18:20 WBC (4.8-10.8) K/ul RBC (3.93-5.22) M/uL Hgb (12.0-16.0) g/dl Hct (34.1-44.9) % MCV (80.0-100.0) fL MCH (25.0-34.0) pg MCHC (32.0-36.0) g/dL RDW Std Deviation (36.4-46.3) fL RDW Coeff of Daniel (11.5-14.5) % Plt Count (130-400) K/uL MPV (9.4-12.3) fL Immature Gran % (Auto) % Neut % (Auto) % Lymph % (Auto) % Burnet % (Auto) % Eos % (Auto) % Baso % (Auto) % Neut # (Auto) (1.4-6.5) K/uL Lymph # (Auto) (1.2-3.4) K/uL Burnet # (Auto) (0.24-0.82) K/uL Eos # (Auto) (0-0.50) K/uL Baso # (Auto) (0-0.2) K/uL Immature Gran # (Auto) (0.00-0.02) K/uL PT (9.0-12.0) Seconds INR (0.9-1.1) APTT (21.0-31.0) Seconds PTT Ratio Sodium (136-145) mmol/L Potassium (3.5-5.1) mmol/L Chloride (98-107) mmol/L Carbon Dioxide (21-32) mmol/L Anion Gap (3-11) BUN (6-23) mg/dl Creatinine (0.6-1.2) mg/dl Est Cr Clr Drug Dosing ml/min Est GFR ( Amer) ml/min Est GFR (Non-Af Amer) ml/min BUN/Creatinine Ratio (10-20) Glucose (70-99(Fasting)) mg/dl Lactate (0.4-2.0) mmol/L Calcium (8.5-10.1) mg/dl Phosphorus (2.5-4.9) mg/dl Magnesium (1.7-2.4) mg/dl Total Bilirubin (0.2-1.0) mg/dl AST (13-39) U/L ALT (7-52) U/L Alkaline Phosphatase (34-104) U/L Troponin I High Sens (0-14) pg/ml B-Natriuretic Peptide 73 (0-100) pg/ml Total Protein (6.0-8.3) gm/dl Albumin (3.4-5.0) gm/dl Globulin (2.5-4.0) gm/dl Albumin/Globulin Ratio (0.9-2) Procalcitonin (0-0.5) ng/ml SARS-CoV-2 (PCR) NEGATIVE (Negative) Influenza Type A (PCR) Negative (Neg) Influenza Type B (PCR) Negative (Neg) RSV (RT-PCR) Negative (Neg) Administered Medications Discontinued Medications Albuterol (Albut/Ipratrop 3mg/0.5mg Neb 3 Ml Vial) 3 ml NEB NOW STA; Protocol Stop: 07/13/22 17:52 Last Admin: 07/13/22 18:18 Dose: 3 ml Documented By: SETH Guaifenesin (Guaifenesin 600 Mg Tabcr) 1,200 mg PO NOW STA Stop: 07/13/22 17:52 Last Admin: 07/13/22 18:10 Dose: 1,200 mg Documented By: SETH Sodium Chloride (Nss 1000ml) 1,000 mls @ 999 mls/hr IV .Q1H1M ONE Stop: 07/13/22 18:48 Last Infusion: 07/13/22 19:35 Dose: 0 mls/hr Documented By: Admin: 07/13/22 18:09 Dose: 999 mls/hr Documented By: SETH Famotidine (Pepcid 20mg Iv Push) 20 mg in 5 mls @ 2.5 mls/min IV NOW STA Stop: 07/13/22 17:49 Last Admin: 07/13/22 18:10 Dose: 2.5 mls/min Documented By: SETH Ioversol (Optiray 300 500ml) 112 ml IV ONCE ONE Stop: 07/13/22 19:27 Last Admin: 07/13/22 19:27 Dose: 50 ml Documented By: JULIAN Levofloxacin (Levofloxacin 750 Mg Tab) 750 mg PO NOW STA Stop: 07/13/22 22:02 Last Admin: 07/13/22 22:03 Dose: Not Given Documented By: ABEBA Methylprednisolone (Methylprednisolone 125 Mg/2 Ml Vial) 125 mg IV NOW STA Stop: 07/13/22 17:49 Last Admin: 07/13/22 18:10 Dose: 125 mg Documented By: SETH Ondansetron HCl (Ondansetron Inj 2 Mg/Ml 2 Ml Vial) 4 mg IV NOW STA Stop: 07/13/22 17:49 Last Admin: 07/13/22 18:10 Dose: 4 mg Documented By: SETH Imaging Data Radiologist's Impression: Chest X-Ray 07/13/22 16:40 XR chest 1V portable CLINICAL HISTORY: Shortness of breath. COMPARISON STUDY: Chest CT July 03, 2022. Chest radiograph July 11, 2022. FINDINGS: Lung volumes are normal. There is no pneumothorax or pleural effusion. Cardiac mediastinal silhouette is normal. Reticulonodular interstitial thickening persists. Right mid and lower lung airspace opacity is improved. IMPRESSION: Reticulonodular interstitial thickening and bilateral airspace opacities, minimally improved since prior exam. The findings favor pneumonia. ACT 112: Negative or not required by law. Electronically signed by: Daniele Agudelo M.D. 07/13/2022 6:11 PM Chest CTA 07/13/22 18:11 CHEST CTA for PULMONARY ARTERIES CT DOSE: 1012.29 mGy.cm HISTORY: Shortness of breath. Recent pneumonia. TECHNIQUE: Multiaxial CT images of the chest were performed following the intravenous administration of contrast to evaluate the pulmonary arteries. Maximal intensity projection images were also obtained. A dose lowering technique was utilized adhering to the principles of ALARA. COMPARISON STUDY: Chest CTA 07/03/2022. FINDINGS: Mild anterior wedging at T7, unchanged. This is likely chronic. No acute fractures identified within the chest. No pneumothorax. The central airways appear patent. There is respiratory motion artifact. Bilateral lower lobe airspace opacities have improved. There are few new scattered multifocal groundglass airspace opacities seen throughout the lungs. Findings likely represent a multifocal atypical pneumonia could be due to a viral process. There is mild paraseptal and centrilobular emphysema. The liver and spleen are partially visualized but appear enlarged. This remains unchanged. The visualized adrenal glands are unremarkable. No pleural or pericardial effusions. The thyroid gland enhances normally. Borderline mediastinal lymphadenopathy, unchanged. This may be reactive to the suspected pneumonia. The heart remains mildly enlarged. Mild atherosclerotic plaque within the normal caliber thoracic aorta. No evidence for an aortic dissection. There is moderate coronary artery calcifications again noted. The bilateral lower lobe segmental and subsegmental pulmonary arteries are nondiagnostic due to the respiratory motion artifact. However, the remaining pulmonary arteries show no filling defects to suggest a pulmonary embolus. IMPRESSION: 1. No evidence for pulmonary embolus with limitations as described above. 2. The bilateral lower lobe airspace opacities have improved. However, there are a few new scattered multifocal groundglass airspace opacities seen throughout the lungs. Findings likely represent a multifocal atypical pneumonia and could be due to a viral process. 3. Mild emphysema. 4. Borderline mediastinal lymphadenopathy, unchanged. This could be reactive. 5. Hepatosplenomegaly, unchanged. ACT 112: Negative or not required by law. Electronically signed by: Thor Harden M.D. 07/13/2022 7:46 PM Discharge Plan Visit Data Chief Complaint: Shortness of Breath/Dyspnea Stated Complaint: REF BY PIA LARIOS, MARY ED Provider: Zen Hager Discharge Problem: Pneumonia, COPD (chronic obstructive pulmonary disease), BARLOW (dyspnea on exerti on) Patient Disposition: Home - Self-Care Condition: Good Discharge Instructions Interventions: ED Discharge Assessment Last Done: 07/13/22 21:09
--- NOTE | 2022-07-13 20:45 | History & Physical Report ---
Date of Service July 13, 2022 History of Present Illness Chief Complaint: recent hospitalization for pneumonia failing to improve at home Primary Care Provider: Eunice Velasquez MD Margaret Mata is a 61-year-old female with past medical history significant for daily asthma, daily tobacco abuse, hypertension, hyperlipidemia, DM neuropathy, regular marijuana use, anxiety, depression, and hemochromatosis presents today Allergies Allergy/AdvReac Type Severity Reaction Status Date / Time varenicline Allergy Severe DIFFICULTY Verified 07/13/22 18:27 BREATHING bupropion AdvReac Intermediate INCREASED Verified 07/13/22 18:27 PANIC DISORDER fluoxetine AdvReac Intermediate INCREASES Verified 07/13/22 18:27 PANIC DISORDER venlafaxine AdvReac Intermediate INCREASES Verified 07/13/22 18:27 PANIC DISORDER Home Medications Medication Instructions Recorded Confirmed Type methadone 10 mg/mL oral concentrate 149 mg PO QAM 08/19/19 07/13/22 History aspirin 81 mg tablet,delayed 81 mg PO QAM 07/07/20 07/13/22 History release (Adult Low Dose Aspirin) fluticasone furoate 100 1 inh inhalation DAILY #60 ea 06/15/21 07/13/22 Rx mcg-vilanterol 25 mcg/dose inhalation powder (Breo Ellipta) metformin 500 mg tablet 500 mg PO BID #180 tabs 09/22/21 07/13/22 Rx albuterol sulfate 90 mcg/actuation 2 puff inhalation QID PRN 11/07/21 07/13/22 Rx aerosol inhaler shortness of breath or wheezing #6.7 grams ipratropium 0.5 mg-albuterol 3 mg 3 ml inhalation QID PRN wheezing 11/07/21 07/13/22 Rx (2.5 mg base)/3 mL nebulization #90 mL soln gabapentin 800 mg tablet 800 mg PO TID #90 tabs 03/24/22 07/13/22 Rx psyllium husk 3.4 gram/5.4 gram 1 tbsp PO BID PRN constipation 04/06/22 07/13/22 Rx oral powder (Metamucil) #660 grams amitriptyline 150 mg tablet 150 mg PO HS #90 tabs 04/14/22 07/13/22 Rx naloxone 4 mg/actuation nasal 1 spray intranasal DIRECTED PRN 04/16/22 07/13/22 History spray (Narcan) NEEDED methocarbamol 750 mg tablet 750 mg PO QID PRN CHRONIC PAIN #60 05/16/22 07/13/22 Rx tabs Past Med/Surg History Medical History Chronic lumbar pain Cough Current every day smoker DDD (degenerative disc disease) Eardrum trauma GERD (gastroesophageal reflux disease) Hemochromatosis History of colon polyps Orthostatic hypotension Osteoarthritis Panic disorder 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 cord Surgical History History of colonoscopy History of esophagogastroduodenoscopy (EGD) History of laparoscopy History of loop electrical excision procedure (LEEP) History of lumbar surgery History of prior ablation treatment (2013) History of tubal ligation History of vocal cord polypectomy Family History Father Diabetes Myocardial infarction Lung cancer Hypertension Mother Diabetes Cardiac disorder Hypertension Grandfather (Maternal) Diabetes Grandmother (Maternal) Diabetes Unknown Heart disease Sister Myocardial infarction Grandfather (Paternal) Diabetes Grandmother (Paternal) Diabetes Brother Retinoblastoma Other No family history of adverse response to anesthesia Denies family history of Ovarian cancer Prostate cancer Osteoporosis Breast cancer Bleeding disorder Colorectal cancer Social History Smoking Status: Current every day smoker Tobacco Type: Cigarettes Age Started Using Tobacco: 17; Cigarettes Per Day: 12-14; Second Hand Exposure: Yes; Hx Alcohol Use: Yes Alcohol type: beer Hx Substance Use: No Preferred Language: Indonesian Communication Ability: Effective Visual Impairment: No Limitations Hearing Ability: Normal Voip Engineer Required: No Beliefs That Will Affect Care: None marital status: / Current Living Situation: Alone current occupational status: unemployed and disabled How many Children do You have: 4 Feels Safe at Home: Yes Childhood Exposure to Second-Hand Smoke: Yes caffeine: Yes Dental Care, Regularly: Yes Physical Activity Frequency: 5-6 Times per Week Seatbelt Use: always Sunscreen Use: Yes Assistive Devices: Nebulizer Results & Data Results & Data ([facility]) Vital Signs (Past 12 Hours) Vital Signs Temp Pulse Resp BP Pulse Ox O2 Del Method 07/13/22 18:28 80 18 154/76 H 97 Nebulizer 07/13/22 18:28 90 22 93 Room Air 07/13/22 17:36 93 Room Air 07/13/22 16:36 36 C L 90 22 165/83 H 93 Room Air PG Care Time/CCT Total # of Minutes Spent Total Time Spent with Patient: Total time spent is greater than 50% in coordination of care (as documented) at patient's floor/unit and/or counseling patient: Coding
[2022-07-13] MEDS ORDERED: cefTRIAXone SODIUM 2,000 MG/70 ML BAG IV STA (21:01)
[2022-07-13] MEDS ORDERED: AZITHROMYCIN 500 MG in DEXTROSE 5% 250 ML IV STA (21:01)
--- NOTE | 2022-07-13 21:17 | Hospitalist Consultation ---
Date of Consultation July 13, 2022 Assessment & Plan (1) Pneumonia: - Overall, CXR and chest CTA show mild improvement since discharge 1 week ago, however there are a few new scattered multifocal groundglass airspace opacities seen throughout the lungs. Findings likely represent a multifocal atypical pneum onia and could be due to a viral process. - She recently completed IV Unasyn and azithromycin in hospital, d/c'd on Augmentin and completed this - She provided a prescription for an oral antibiotic by ED provider - Patient encouraged to use her inhalers as prescribed and supportive care with Mucinex and Tylenol in addition to the antibiotic. (2) Hypoxia: - Patient elected to >92% at rest, on room air, however was found to desat with minimal exertion. She is having home oxygen arranged. (3) Current every day smoker: - Patient is still an everyday tobacco user, despite COPD minus asthma. Encouraged tobacco cessation. Plan - Patient will be discharged from the ED with oral antibiotic prescription and instructions to return with any worsening shortness of breath prescribed inhalers or fevers not controlled with Tylenol. She is very comfortable with this plan. Supervising Physician Co-Signing Physician Notes Attending addendum: I have physically seen this patient, have supervised the OLEGARIO's activities, and agree with the H&P unless as otherwise noted. Assessment and Plan: Pneumonia, multifocal atypical versus viral versus secondary bacterial- Chest x-ray and CTA chest to show improvement compared 1 week ago, however, patient continues to have symptomatology. Status post Unasyn and azithromycin IV at previous hospitalization, and has been on Augmentin in the outpatient setting Guaifenesin extended release 1200 mg p.o. twice daily The patient will be discharged from the emergency department, to follow-up with her outpatient physician Tobacco cessation encouraged Emergency department has been successfully able to arrange home oxygen Patient is aware that she can return to emergency department anytime if her symptoms should recur or worsen History of Present Illness Reason for Consultation: chronic respiratory failure, recent pneumonia requiring hospitalization last week Requesting Physician: Zen Hager MD Attending Physician: Zen Hager MD History of Present Illness Margaret Mata is a 61-year-old female with past medical history significant for daily asthma, daily tobacco abuse, hypertension, hyperlipidemia, DM neuropathy, regular marijuana use, anxiety, depression, and hemochromatosis presents today at the referral of her PCP for evaluation. She was recently admitted to our facility last week for bilateral pneumonia, treated on medicine and was azithromycin and transition to Augmentin on discharge. Since discharge, she has not any fever chills, worsening cough, or congestion does not feel that she is fully better. As she is a current tobacco user with asthma and COPD she was found to desat with minimal exertion and without a PCP appointment today to have home oxygen arranged. They did perform an x-ray 2 days ago which did not appear worse, however did not show improvement and therefore she was recommended to come to the ED for further evaluation. Upon presentation, patient's vital signs are stable and within normal limits, SPO2 >92% on room air. Labs are largely unremarkable, without leukocytosis, procalcitonin is negative, renal function at baseline, liver enzymes are elevated, plan facial and for patient. She is without any electrolyte abnormalities. Troponin 6.7, BNP is 73. His COVID/flu/RSV negative. CXR shows minimal improvement of pneumonia compared to CXR from last week. CTA done without evidence of PE, however there are multifocal groundglass airspace opacities seen throughout the lungs possibly an atypical versus viral pneumonia. Patient was seen, as she initially was preferring admission, however changed her mind and prefers to be discharged home with an oral antibiotic as she believes she is improving and can manage her symptoms at home. Allergies Allergy/AdvReac Type Severity Reaction Status Date / Time varenicline Allergy Severe DIFFICULTY Verified 07/13/22 18:27 BREATHING bupropion AdvReac Intermediate INCREASED Verified 07/13/22 18:27 PANIC DISORDER fluoxetine AdvReac Intermediate INCREASES Verified 07/13/22 18:27 PANIC DISORDER venlafaxine AdvReac Intermediate INCREASES Verified 07/13/22 18:27 PANIC DISORDER Home Medications Medication Instructions Recorded Confirmed Type methadone 10 mg/mL oral concentrate 149 mg PO QAM 08/19/19 07/13/22 History aspirin 81 mg tablet,delayed 81 mg PO QAM 07/07/20 07/13/22 History release (Adult Low Dose Aspirin) fluticasone furoate 100 1 inh inhalation DAILY #60 ea 06/15/21 07/13/22 Rx mcg-vilanterol 25 mcg/dose inhalation powder (Breo Ellipta) metformin 500 mg tablet 500 mg PO BID #180 tabs 09/22/21 07/13/22 Rx albuterol sulfate 90 mcg/actuation 2 puff inhalation QID PRN 11/07/21 07/13/22 Rx aerosol inhaler shortness of breath or wheezing #6.7 grams ipratropium 0.5 mg-albuterol 3 mg 3 ml inhalation QID PRN wheezing 11/07/21 07/13/22 Rx (2.5 mg base)/3 mL nebulization #90 mL soln gabapentin 800 mg tablet 800 mg PO TID #90 tabs 03/24/22 07/13/22 Rx psyllium husk 3.4 gram/5.4 gram 1 tbsp PO BID PRN constipation 04/06/22 07/13/22 Rx oral powder (Metamucil) #660 grams amitriptyline 150 mg tablet 150 mg PO HS #90 tabs 04/14/22 07/13/22 Rx naloxone 4 mg/actuation nasal 1 spray intranasal DIRECTED PRN 04/16/22 07/13/22 History spray (Narcan) NEEDED methocarbamol 750 mg tablet 750 mg PO QID PRN CHRONIC PAIN #60 05/16/22 07/13/22 Rx tabs Saccharomyces boulardii 250 mg 250 mg PO BID #20 caps 07/13/22 Rx capsule (Florastor) levofloxacin 750 mg tablet 750 mg PO DAILY 10 days #10 tabs 07/13/22 Rx prednisone 20 mg tablet 60 mg PO DAILY 4 days #12 tabs 07/13/22 Rx Patient History Medical History Chronic lumbar pain Cough currently w/ productive cough x 3-5 days; yellow sputum Current every day smoker DDD (degenerative disc disease) Eardrum trauma hx GERD (gastroesophageal reflux disease) Hemochromatosis History of colon polyps Orthostatic hypotension Osteoarthritis Panic disorder 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 cord reports injury to left during vocal cord polypectomy Surgical History History of colonoscopy History of esophagogastroduodenoscopy (EGD) History of laparoscopy History of loop electrical excision procedure (LEEP) History of lumbar surgery History of prior ablation treatment (2013) vaginal lesions History of tubal ligation History of vocal cord polypectomy Family History Father Diabetes Myocardial infarction Lung cancer Hypertension Mother Diabetes Cardiac disorder Hypertension Grandfather (Maternal) Diabetes Grandmother (Maternal) Diabetes Unknown Heart disease Sister Myocardial infarction Grandfather (Paternal) Diabetes Grandmother (Paternal) Diabetes Brother Retinoblastoma Other No family history of adverse response to anesthesia Denies family history of Ovarian cancer Prostate cancer Osteoporosis Breast cancer Bleeding disorder Colorectal cancer Social History Smoking Status: Current every day smoker Tobacco Type: Cigarettes Age Started Using Tobacco: 17; Cigarettes Per Day: 12-14; Second Hand Exposure: Yes; Hx Alcohol Use: Yes Alcohol type: beer Hx Substance Use: No Preferred Language: Bahraini Communication Ability: Effective Visual Impairment: No Limitations Hearing Ability: Normal Replenishment Merchandising Associate Required: No Beliefs That Will Affect Care: None marital status: / Current Living Situation: Alone current occupational status: unemployed and disabled How many Children do You have: 4 Feels Safe at Home: Yes Childhood Exposure to Second-Hand Smoke: Yes caffeine: Yes Dental Care, Regularly: Yes Physical Activity Frequency: 5-6 Times per Week Seatbelt Use: always Sunscreen Use: Yes Assistive Devices: Nebulizer Review of Systems Review of Systems: Constitutional: No fever/chills, weakness, fatigue, myalgias, anorexia, night sweats Eyes: No diplopia, no worsening or blurred vision ENT: normal hearing, no trouble swallowing Respiratory: No change to chronic cough cough, sputum; she remains mildly hypoxic with activity Cardiovascular: No chest pain, tightness or palpitations Abdomen: No pain, nausea, vomiting, diarrhea or constipation : Denies dysuria, hematuria, increased urgency/frequency, urinary retention Musculoskeletal: No joint pain, calf pain, swelling Neurologic: No weakness, numbness/tingling, or balance problems Psychiatric: No anxiety or depression Skin: No rash or itch Physical Exam Physical Exam: Physical exam: General: awake, alert, no apparent distress Head: Normocephalic, atraumatic ENT: PERRL, EOMI, no pharyngeal exudate, mucous membranes moist Chest: Clear to auscultation with some expiratory wheezes; on room air, no adventitious breath sounds Cardiac: Regular rate and rhythm, no murmur, no JVD, normal peripheral pulses, good capillary refill Abdominal: NABS x 4 quadrants, soft, nontender to palpation, no rebound, guarding or tenderness Extremities: Normal inspection, no peripheral edema or erythema, calfs nontender to palpation Psych: Normal mood and affect Neuro: AAO x 3, strength intact bilaterally and rated 5/5, no motor deficits, speech is clear, no peripheral sensory deficits Skin: no rash or erythema Results & Data Results & Data ([facility]) Vital Signs (Past 12 Hours) Vital Signs Temp Pulse Pulse Resp BP Pulse Ox O2 Del Method 07/13/22 19:30 78 20 93 Room Air 07/13/22 18:28 80 18 154/76 H 97 Nebulizer 07/13/22 18:28 90 22 93 Room Air 07/13/22 17:36 93 Room Air 07/13/22 16:36 36 C L 90 22 165/83 H 93 Room Air Laboratory Results Abnormal lab results 07/13/22 07/13/22 Range/Units 17:30 17:30 MPV 9.0 L (9.4-12.3) fL Immature Gran # (Auto) 0.09 H (0.00-0.02) K/uL BUN/Creatinine Ratio 8.8 L (10-20) Glucose 130 H (70-99(Fasting)) mg/dl AST 84 H (13-39) U/L ALT 70 H (7-52) U/L Diagnostic Findings Chest X-Ray 07/13/22 16:40 XR chest 1V portable CLINICAL HISTORY: Shortness of breath. COMPARISON STUDY: Chest CT July 03, 2022. Chest radiograph July 11, 2022. FINDINGS: Lung volumes are normal. There is no pneumothorax or pleural effusion. Cardiac mediastinal silhouette is normal. Reticulonodular interstitial thickening persists. Right mid and lower lung airspace opacity is improved. IMPRESSION: Reticulonodular interstitial thickening and bilateral airspace opacities, minimally improved since prior exam. The findings favor pneumonia. ACT 112: Negative or not required by law. Electronically signed by: Daniele Agudelo M.D. 07/13/2022 6:11 PM Chest CTA 07/13/22 18:11 CHEST CTA for PULMONARY ARTERIES CT DOSE: 1012.29 mGy.cm HISTORY: Shortness of breath. Recent pneumonia. TECHNIQUE: Multiaxial CT images of the chest were performed following the intravenous administration of contrast to evaluate the pulmonary arteries. Maximal intensity projection images were also obtained. A dose lowering technique was utilized adhering to the principles of ALARA. COMPARISON STUDY: Chest CTA 07/03/2022. FINDINGS: Mild anterior wedging at T7, unchanged. This is likely chronic. No acute fractures identified within the chest. No pneumothorax. The central airways appear patent. There is respiratory motion artifact. Bilateral lower lobe airspace opacities have improved. There are few new scattered multifocal groundglass airspace opacities seen throughout the lungs. Findings likely represent a multifocal atypical pneumonia could be due to a viral process. There is mild paraseptal and centrilobular emphysema. The liver and spleen are partially visualized but appear enlarged. This remains unchanged. The visualized adrenal glands are unremarkable. No pleural or pericardial effusions. The thyroid gland enhances normally. Borderline mediastinal lymphadenopathy, unchanged. This may be reactive to the suspected pneumonia. The heart remains mildly enlarged. Mild atherosclerotic plaque within the normal caliber thoracic aorta. No evidence for an aortic dissection. There is moderate coronary artery calcifications again noted. The bilateral lower lobe segmental and subsegmental pulmonary arteries are nondiagnostic due to the respiratory motion artifact. However, the remaining pulmonary arteries show no filling defects to suggest a pulmonary embolus. IMPRESSION: 1. No evidence for pulmonary embolus with limitations as described above. 2. The bilateral lower lobe airspace opacities have improved. However, there are a few new scattered multifocal groundglass airspace opacities seen throughout the lungs. Findings likely represent a multifocal atypical pneumonia and could be due to a viral process. 3. Mild emphysema. 4. Borderline mediastinal lymphadenopathy, unchanged. This could be reactive. 5. Hepatosplenomegaly, unchanged. ACT 112: Negative or not required by law. Electronically signed by: Thor Harden M.D. 07/13/2022 7:46 PM PG Care Time/CCT Total # of Minutes Spent Total Time Spent with Patient: Total time spent is greater than 50% in coordination of care (as documented) at patient's floor/unit and/or counseling patient: Coding Level of Care Code 30642 Inpt Consult Level 2 Diagnoses Pneumonia J18.9 Hypoxia R09.02 Current every day smoker F17.200
[2022-07-13] MEDS ORDERED: levoFLOXacin 750 MG TAB PO STA (22:01)
--- NOTE | 2022-07-14 14:51 | Electrocardiogram Report ---
Test Reason : Blood Pressure : / mmHG Vent. Rate : 088 BPM Atrial Rate : 088 BPM P-R Int : 156 ms QRS Dur : 108 ms QT Int : 406 ms P-R-T Axes : 061 -55 058 degrees QTc Int : 491 ms Normal sinus rhythm Left anterior fascicular block Voltage criteria for left ventricular hypertrophy Abnormal ECG When compared with ECG of 03-JUL-2022 10:51, Premature ventricular complexes are no longer Present Right bundle branch block is no longer Present Confirmed by Fernie Sena ([id number]) on 07/14/2022 2:50:47 PM Referred By: Eunice Velasquez Confirmed By:Ravi Sena
== END 2022-07-13 22:00 | disposition home or self-care (01) | DRG 194 ==
LOC: ED 16:27 → EDINP 20:56